=== PATIENT | female | born 1940 | race Caucasian/White ===

== ENCOUNTER 2016-04-26 07:56 | Day surgery (SDC) | payer MEDICARE, BC ==
[~2016-04-26 07:56] MED LIST: RINGERS SOLUTION,LACTATED 1,000 ML IV PRN
--- OUTSIDE RECORDS SUMMARY | 2016-04-26 07:59 | XMS REPORT | Continuity of Care Document ---
:1940 Author Organization [facility] ([facility]) Address [address] [place] [address] Phone [phone] Care Team Providers Name Role Phone Unavailable Primary Care Provider Unavailable Source Comments This disclosure is being made pursuant to the Care Everywhere program, applicable federal and state laws, and may not contain all informaitonavailable regarding this patient.[facility] ([facility]) Active Allergies and Adverse Reactions No Active Allergies Current Medications Not on file Active Problems Not on file Social History Tobacco Use Types Packs/Day Years Used Date Never Assessed Last Filed Vital Signs Vital Sign Reading Time Taken Blood Pressure - - Pulse - - Temperature - - Respiratory Rate - - Height 1.626 m (5' 4.01") 02/14/2002 1:10 PM [employer] Weight 74.599 kg (164 lb 7.4 oz) 05/30/2002 1:13 PM [employer] Body Mass Index 28.22 05/30/2002 1:13 PM [employer] Oxygen Saturation - - Plan of Care Health Maintenance Due Date Last Done Comments Hepatitis B Vaccine (1 of 3 - Primary Series) 1940 Tdap Vaccine 08/09/1951 Lipid Disorder Screening 1958 Td Vaccine 1958 Mammogram 1980 Colonoscopy 1990 Zoster Vaccine 2000 Osteoporosis Screening (DXA Bone Density) 2005 Pneumococcal Vaccine (1 of 2 - PCV13) 2005 Influenza Vaccine: Seasonal (#1) 10/06/2015 Results from Last 3 Months Not on file
[2016-04-26] MEDS ORDERED: RINGERS SOLUTION,LACTATED 1,000 ML IV ONE (08:25)
[2016-04-26] MEDS ORDERED: PANTOPRAZOLE SODIUM 40 MG/100 ML PIGGYBACK IV ONE (10:33)
[2016-04-26] MEDS ORDERED: PANTOPRAZOLE SODIUM 40 MG in NORMAL SALINE 100 ML IV ONE (10:45)
[2016-04-26 14:36] VITALS: BP 130/84
--- NOTE | 2016-04-26 16:33 | OR ---
Operative Report - Dictated Report Narrative: Operative Report Date of operation: 04/26/2016 Preoperative diagnosis: Iron deficiency anemia. No recent dedicated colon studies Postoperative diagnosis: Hiatal hernia. Gastropathy. Foreign body of the stomach. Pyloric channel ulcer with pyloric stenosis (pathology and CLOtest pending) Normal colonoscopy Operation: EGD with biopsies. Retrieval of gastric foreign body. Balloon dilation of the pylorus to 15 mm Surgeon: Dr Ricketts Anesthesia: ISABEL EKATING CRNA Indications for procedure: The patient is a 75-year-old female referred by Dr. Smith for endoscopy as part of an evaluation of iron deficiency anemia. Her last colonoscopy was in 2005 Findings: Hiatal hernia, gastropathy. Foreign body in the stomach (ointment tube screw cap). Pyloric channel ulcer with stenosis (successfully dilated to 15 mm). Normal duodenum Narrative of procedure: The patient was identified preoperatively, and prior to the administration of anesthetic a multidisciplinary timeout was observed EGD: With the patient in the recumbent position, a bite-block was placed, intravenous sedation was administered, and the patient's eyes covered with a towel. The flexible fiberoptic gastroscope was advanced into the posterior pharynx which appeared normal. The supraglottic larynx appeared normal. The cords appeared normal, moved well, and opposed in the midline. The scope was advanced under direct vision into the proximal esophagus which appeared normal. The esophagus appeared freely distensible with normal mucosa. The esophageal mucosa appeared normal down to the gastroesophageal junction which was sharp and noninflamed. The GE junction appeared normally distensible. There was a small hiatal hernia. The scope was advanced into the stomach proper which was insufflated with air. There was mild ramirez gastric erythema. There was a foreign body noted in the mid stomach. The scope was advanced to the pylorus where a pyloric channel ulceration was noted. The pylorus was stenotic and would not admit the gastroscope. Accordingly the pylorus was then dilated in stages to 15 mm. It appeared hemostatic. The scope could then be advanced into the duodenal bulb which appeared normal. The scope was advanced further to the horizontal portion of the duodenum which appeared normal, specifically the villous architecture appeared well preserved and clear bile was present. The scope was slowly withdrawn through the duodenal bulb with confirmation that no active bulb ulcer was present. The scope was withdrawn into the stomach and field representative/health education biopsies of prepyloric antral mucosa obtained for CLOtest and pathology. The biopsy sites were seen to be hemostatic. The foreign body was placed in a bag for retrieval. The insufflated air was removed, the scope withdrawn from the patient with the foreign body contained in the bag, and this portion of the procedure terminated. COLONOSCOPY: The patient was then placed in the left lateral position, and the perineum was inspected. There was no evidence of pilonidal disease or skin breakdown. The external appearance of the anus was normal. Sphincter tone was good. The flexible fiberoptic colonoscope was inserted into the rectum which was insufflated with air. The rectal mucosa and submucosal vascular pattern appeared normal, the prep was seen to be complete. The scope was advanced through the sigmoid colon, up the descending colon, and around the splenic flexure where the triangular haustral architecture of the transverse colon was seen. The scope was advanced across the transverse colon, around the hepatic flexure to the cecum, where the confluence of tenia and the ileocecal valve were identified. The mucosa at this level appeared normal. The scope was then slowly withdrawn in a circular fashion so that all aspects of colonic mucosa were inspected. The colon was very capacious character requiring use of standard reduction maneuvers and gentle external manual compression on the abdomen to reach the cecum. The haustral architecture however appeared well preserved throughout with no evidence of external compression. The mucosa and submucosal vascular pattern appeared normal, specifically there was no gross evidence to suggest colitis or inflammatory bowel disease and no AV malformations were seen. No keyla diverticulosis was demonstrated. No polyps were encountered. The scope was gradually withdrawn to the level of the rectum. As much insufflated air as possible was removed. The scope was withdrawn from the patient and the procedure terminated. The patient tolerated the anesthetic and procedure well without complication and was transferred back to the ambulatory surgery area awake and in stable condition. The patient remained stable throughout a period of postoperative observation. She denied abdominal discomfort, was able to tolerate by mouth intake, and was up without assistance. I shared the operative findings with the patient and her , and she was given copies of the photographs which appear in the medical record. She was shown the foreign body and it was given to her. She did not remember having swallowed it. She was given a single dose of Protonix 40 mg IV prior to discharge. She was discharged home with instructions not to engage in hazardous activity today, but may resume normal activity tomorrow, and advance diet as tolerated. She is to continue those medications as listed in the history and physical exam. I made arrangements to contact her with the biopsy reports and will make additional recommendations for treatment and follow -up based upon those results. RECOMMENDATION: With regard to colon surveillance, she should have a Colonoscopy in 10 years depending upon findings and symptoms. Reviewed and electronically signed
== END 2016-04-26 07:57 | disposition home or self-care (01) ==
LOC: AMB 07:56
PROVIDERS: ATTEND Surgery
PROC: 0D778ZZ Dilation of Stomach, Pylorus, Via Natural or Artificial Opening Endoscopic (ICD-10-PCS; 2016-04-26)
PROC: 0DC68ZZ Extirpation of Matter from Stomach, Via Natural or Artificial Opening Endoscopic (ICD-10-PCS; 2016-04-26)
PROC: 0DJD8ZZ Inspection of Lower Intestinal Tract, Via Natural or Artificial Opening Endoscopic (ICD-10-PCS; principal; 2016-04-26 09:00)
PROC: 0DB78ZX Excision of Stomach, Pylorus, Via Natural or Artificial Opening Endoscopic, Diagnostic (ICD-10-PCS; 2016-04-26 09:00)
DX: Z12.11 Encounter for screening for malignant neoplasm of colon (principal); K29.70 Gastritis, unspecified, without bleeding; K44.9 Diaphragmatic hernia without obstruction or gangrene; T18.2XXA Foreign body in stomach, initial encounter; K25.9 Gastric ulcer, unspecified as acute or chronic, without hemorrhage or perforation; K31.1 Adult hypertrophic pyloric stenosis; D50.9 Iron deficiency anemia, unspecified; I10 Essential (primary) hypertension; E78.5 Hyperlipidemia, unspecified; E03.9 Hypothyroidism, unspecified; F32.9 Major depressive disorder, single episode, unspecified; F41.1 Generalized anxiety disorder; Z87.891 Personal history of nicotine dependence; Z68.28 Body mass index [BMI] 28.0-28.9, adult
CPT/HCPCS: 43239; 43245; 43247; 87081; G0121

== ENCOUNTER 2019-02-07 16:45 | Inpatient (IN) ==
[2019-02-07] MEDS ORDERED: NALOXONE HCL 1 MG/1 ML SYRG IV ONE (17:12)
[2019-02-07] MEDS ORDERED: NORMAL SALINE 1,000 ML IV ONE ×2 (17:12→18:15)
[2019-02-07 17:50] LABS: Hematocrit 39.4 % (37.0-47.0); Hemoglobin 13.1 gm/dL (12.5-16.0); Mean Cell Volume 85.7 fl (78-100); Mean Corpuscular Hemoglobin 28.5 pg (27-31); Mean Corpuscular Hgb Conc 33.2 g/dl (32-36); Neutrophil # 5.4 K/mm3 (1.3-6.0); Neutrophil % 75.6 % (42-75.0); Platelet Count 263 K/mm3 (150-450); Red Cell Distribution Width 13.1 % (11.5-14.0); White Blood Count 7.1 K/mm3 (4.0-10.5)
[2019-02-07 18:07] LABS: Urine Bilirubin Negative (NEGATIVE); Urine Blood Negative /ul (NEGATIVE); Urine Ketone Negative (NEGATIVE); Urine Nitrite Negative (NEGATIVE); Urine Protein Negative (NEGATIVE); Urine Specific Gravity 1.025 SP.GR. (1.005-1.010); Urine Urobilinogen Normal (NORMAL); Urine pH 5.5 pH (5.0-7.0)
[2019-02-07 18:14] LABS: ALT 13 U/L (19-67); AST 15 U/L (0-48); Acetaminophen * 6.1 mcg/mL (10.0-30.0); Albumin * 3.2 gm/dl (3.4-5.0); Alkaline Phosphatase * 83 U/L (50-170); BUN/Creatinine Ratio 17.5 (9.0-21.6); Bilirubin, Total 0.2 mg/dL (0.0-1.1); Blood Urea Nitrogen 14 mg/dL (3-23); Ca. Corrected For Albumin 8.3 mg/dL (8.4-10.2); Carbon Dioxide 25.8 mmol/L (24-32.6); Chloride 106 mmol/L (97-106); Glucose * 105 mg/dL (70-110); Lipase 72 U/L (73-393); Potassium 3.8 mmol/L (3.4-4.6); Salicylate 8.9 mg/dL (2.8-20.0); Sodium 140 mmol/L (132-142); TSH * 0.007 uIU/mL (0.358-3.74); Total Protein 5.9 gm/dL (6.2-8.2); Troponin I Less than 0.017 ng/mL (0.00-0.10)
[2019-02-07 18:18] LABS: Cocaine Ur Negative (NEGATIVE); Urine Barbiturate Negative (NEGATIVE); Urine Benzodiazepines Negative (NEGATIVE); Urine PCP Negative (NEGATIVE); Urine THC Negative (NEGATIVE)
[2019-02-07 18:20] LABS: Urine Opiates Positive (NEGATIVE)
[2019-02-07 18:28] LABS: Urine Amorphous Sediment Many - 3+ (NONE-FEW); Urine Appearance Clear (CLEAR); Urine Bacteria None Seen; Urine Color Yellow; Urine RBC None Seen /hpf (0-5); Urine WBC TRACE /hpf (0-5)
[2019-02-07] MEDS ORDERED: HALOPERIDOL LACTATE 5 MG/ML VIAL IM ONE ×2 (18:35→19:19)
--- NOTE | 2019-02-07 20:11 | ERNOTE ---
Medical Problem HPI - Narrative Date of Service: 02/07/19 - General Chief Complaint: Drug Overdose Time Seen by Provider: 02/07/19 17:02 Source: patient Exam Limitations: no limitations - Immun/Allergies/Home Medications Immunizations: IMMUNIZATION HX Immunizations Up to Date Yes History of Influenza Vaccine Yes Hx Pneumococcal Vaccination Yes Allergies/Adverse Reactions: Allergies doxycycline Adverse Reaction (Intermediate, Verified 01/18/19 13:01) Diarrhea tizanidine Adverse Reaction (Intermediate, Verified 01/18/19 13:01) Mental status changes Home Medications: HOME MEDICATIONS Calcium Carbonate/Vitamin D3 [Calcium 600 + D Tablet] 2 ea PO DAILY 03/14/15 [Last Taken 07/20/18] Gluc Diaz/Chondro Diaz A/Vit C/Mn [Glucosamine Chondroitin Tab] 2 ea PO DAILY 04/20/16 [Last Taken 07/20/18] Synthroid 175 mcg tablet 175 mcg PO DAILY #30 tab NS 02/09/18 [Last Taken 07/20/18] oxycodone 10 mg tablet 10 mg PO Q6H tab 03/13/18 [Last Taken 07/20/18] furosemide 20 mg tablet 30 mg PO DAILY tab 07/20/18 [Last Taken 07/20/18] Aspirin/Acetaminophen/Caffeine [Excedrin Migraine Caplet] 2 ea PO DAILY PRN 07/21/18 [Last Taken Unknown] folic acid 1 mg tablet 1 mg PO DAILY #30 tab 08/28/18 [Last Taken Unknown] simvastatin 40 mg tablet See Rx Instructions .ROUTE .COMPLEX #30 tablet 10/16/18 [Last Taken Unknown] trazodone 100 mg tablet 200 mg PO HS #60 tab 01/22/19 [Last Taken Unknown] Baclofen 10 mg PO DAILY 02/07/19 [Last Taken Unknown] - History of Present History Narrative: Patient arrives via EMS with concern of possibly taking too much narcotic. She has pinpoint pupils and will mumble responses, still has gag reflex. EMS did not provide Narcan. Daughter persent as well. It is unclear if she overdosed but apparently had not been acting right all day, this had been noted earlier today. Otherwise history unavailable from patient. Timing: constant Modifying Factors - (Improves): Present: other - unknown Modifying Factors - (Worsens): Present: other - unknown Review of Systems - Narrative Narrative: unable due to patient condition Medical History (Last Reviewed 02/07/19 @ 20:08 by Audi Ny MD) No history of alcohol use Non-tobacco user Wears glasses Anemia Onset Date: ~08/12/16 Chronic pain syndrome Onset Date: ~05/22/15 Degeneration of lumbar or lumbosacral intervertebral disc Onset Date: Unknown Depression Onset Date: ~05/19/12 Essential hypertension Onset Date: ~10/02/13 Generalized anxiety disorder Onset Date: ~09/02/12 Hot flashes Onset Date: ~2012 Hyperlipidemia Onset Date: ~05/22/15 Hypokalemia Onset Date: ~08/12/16 Hypothyroidism Onset Date: ~05/22/15 Insomnia Onset Date: ~08/12/16 Internal derangement of knee Onset Date: ~09/13/14 Right Low back pain Onset Date: ~09/20/13 Myalgia and myositis, unspecified Onset Date: ~09/14/12 Neuropathy Onset Date: Unknown Left arm Osteopenia Onset Date: Unknown Upper back pain Onset Date: ~05/19/12 Acute pyloric channel ulcer Onset Date: ~04/27/16 CTS (carpal tunnel syndrome) Onset Date: ~06/05/14 bilateral Cancer Onset Date: Unknown 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 Edema Onset Date: ~09/14/16 Gastritis Onset Date: ~08/12/16 History of EKG Onset Date: ~07/07/04 History of blood transfusion Onset Date: Unknown 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 Onset Date: Unknown Post-menopausal Onset Date: ~11/01/13 Pyloric stenosis, acquired Onset Date: ~04/27/16 Rectal bleeding Onset Date: ~11/09/05 Spondylosis Onset Date: Unknown Synovial cyst of popliteal space [Garcia], right knee Onset Date: ~06/05/14 Vocal cord paresis Onset Date: ~07/2004 Surgical History: Surgical History (Last Reviewed 02/07/19 @ 20:08 by Audi Ny MD) S/P carpal tunnel release Onset Date: 07/21/18 left-endoscopic H/O cervical spine x-ray Onset Date: ~02/11/03 H/O colonoscopy Onset Date: ~04/26/16 11/09/05: Liliam; negative 04/26/16: Normal H/O knee surgery Onset Date: ~05/24/17 R knee H/O mammogram Onset Date: ~03/02/06 03/02/2006: benign 01/20/2005: benign 01/08/2004: benign 10/05/2002 07/11/2001 H/O thyroidectomy Onset Date: ~07/2004 Goiter H/O x-ray of lumbar spine Onset Date: ~02/11/03 History of diagnostic ultrasound Onset Date: Unknown 06/26/2004: Thyroid/neck soft tissue 01/14/2004: echocardiogram - stress test post coronary artery bypass grafting surgery 10/08/2002: left breast History of esophagogastroduodenoscopy (EGD) Onset Date: ~04/26/16 With biopsy; Bagan - clotest negative, retrieval of gastric FB (screw cap), balloon dilation of the pylorus to 15mm S/P dilation and curettage Onset Date: Unknown X5 Family History: Family History (Last Reviewed 02/07/19 @ 20:08 by Audi Ny MD) Aunt Breast cancer Brother , age 67 Diabetes MVA (motor vehicle accident) Father , age 80 Multiple myeloma Grandfather , Maternal Cirrhosis of liver Grandfather , Paternal Cancer Grandmother , Maternal Kidney disease Thyroid disease Grandmother , Paternal Heart disease Mother , age 90 Osteoporosis Myocardial infarction Hypertension Daughter Alive and well Son Alive and well Social History: (Last Reviewed 02/07/19 @ 20:08 by Audi Ny MD) Social History: adopted: No retirement: No Marital status: lives independently: No Highest education level completed: some college, no degree Service: No Tobacco: Smoking Status: Never smoker Alcohol: alcohol intake: former Substance Use: substance use type: does not use Dietary Habits: caffeine: Yes Physical Exam - Physical Exam General Appearance: Present: other - somnolent, still has gag, pinpoint pupils. Head Exam: Present: normal inspection, no evidence of injury Eye Exam: PERRL: bilateral - pinpoint pupils Ears, Nose, Throat: Present: other - normal gag reflex. Absent: pharyngeal erythema Neck: Present: normal inspection, other - no meningeal signs Respiratory: Present: no respiratory distress, normal breath sounds, no accessory muscle use, lungs clear Cardiovascular/Chest: Present: regular rate, rhythm, normal peripheral pulses Gastrointestinal/Abdominal: Present: normal bowel sounds, nontender, soft, other - no rigidity Back Exam: Absent: CVA tenderness (R), CVA tenderness (L) Extremity Exam: Present: other - no deformity. Absent: extremity edema Neurological Exam: Present: other - somnolent. After narcan wakes and is very agitated, difficult exam but no acute unilateral focal motor or sensory deficits Skin Exam: Present: normal color, warm/dry. Absent: skin rash Progress - Results and Orders Patient's Lab Results:: I have reviewed the patient's lab results. - Vital Signs Patient's Vital Signs:: I have reviewed the patient's vital signs. Vital Signs: Vital Signs 02/07/19 16:46 02/07/19 17:11 Temperature 36.1 C Pulse Rate 73 70 Respiratory Rate 18 15 Blood Pressure 138/58 138/57 O2 Sat by Pulse Oximetry 95 95 - EKG EKG #1 EKG: NSR EKG read: Interp. by me EKG Comments: NSR rate 66. No evidence of acute infarct or ischemic pattern - X-Ray X-Ray #1 X-Ray: chest Interpretation: Interp. by me X-ray Comments: No real time radiology reads. I reviewed portable CXR, no clear acute process noted, no pneumonia or PTX noted. Await officail radiology report - Progress/Reassessment Chief Complaint: Drug Overdose Progress Note-Subjective: 02/07/19 20:00 Patient had pinpoint pupils and was minimally responsive. Narcan given and patient immediately awoke and became combative. Her pupils no longer pinpoint. She was then thrashing around. There is concern of narcotic overdose. Also possible baclofen. Poison control notified. I was unable to get a head CT because of her agitation after narcan. Dr Lombardi saw the patient in the ED and will take to patient to the SCU and get head CT when patient calms down after the Haldol. I think that is reasonable. There is nothing to suggest ICH on exam or by history, there is nothing to suggest meningitis or encephalitis. CLinically she immediately awoke with narcan and had findings c/w excess opiods on arrival. Dr Lombardi will manage her further from this point and saw the patient in the ED. Departure Clinical Impression: Change in mental status - Departure Disposition: Still a patient Condition: Fair Referrals: Harjit rBavo MD [Primary Care Provider] -
[2019-02-07] MEDS ORDERED: ENOXAPARIN SODIUM 40 MG/0.4 ML SYRG SC SCH (23:30)
[2019-02-07] MEDS ORDERED: HALOPERIDOL LACTATE 5 MG/ML VIAL IM PRN (23:33)
--- NOTE | 2019-02-07 23:39 | HP ---
Chief Complaint - Chief Complaint Date of Service: 02/07/19 Time of Service: 20:25 Chief Complaint: Acute obtunded mentation, weakness, inability to care for self, poor appetite History of Present Illness: Dee Valente is a 78-year-old female. She still lives at home. Today is the one year anniversary of her 's . Because she could not be aroused EMS was summoned to bring her to the emergency room. On arrival pupils were pinpoint and respirations were sluggish. She takes opiates regularly for chronic pain and was also taking baclofen. Apparently 12 baclofen were missing but is unknown how many of the narcotic was missing. She was given 0.2 of Narcan in the emergency room and she immediately awakened and became very combative and confused. The pupils dilated and she was fully alert but very confused. Because of her combativeness she was given Haldol 2-1/2 mg twice in the emergency room. Now in SCU she rests for a while and then becomes agitated again. She will need intermittent Haldol through the night I suspect. Medical History (Last Reviewed 02/07/19 @ 21:45 by Hilda Pedraza RN) No history of alcohol use Non-tobacco user Wears glasses Anemia Onset Date: ~08/12/16 Chronic pain syndrome Onset Date: ~05/22/15 Degeneration of lumbar or lumbosacral intervertebral disc Onset Date: Unknown Depression Onset Date: ~05/19/12 Essential hypertension Onset Date: ~10/02/13 Generalized anxiety disorder Onset Date: ~09/02/12 Hot flashes Onset Date: ~2012 Hyperlipidemia Onset Date: ~05/22/15 Hypokalemia Onset Date: ~08/12/16 Hypothyroidism Onset Date: ~05/22/15 Insomnia Onset Date: ~08/12/16 Internal derangement of knee Onset Date: ~09/13/14 Right Low back pain Onset Date: ~09/20/13 Myalgia and myositis, unspecified Onset Date: ~09/14/12 Neuropathy Onset Date: Unknown Left arm Osteopenia Onset Date: Unknown Upper back pain Onset Date: ~05/19/12 Acute pyloric channel ulcer Onset Date: ~04/27/16 CTS (carpal tunnel syndrome) Onset Date: ~06/05/14 bilateral Cancer Onset Date: Unknown 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 Edema Onset Date: ~09/14/16 Gastritis Onset Date: ~08/12/16 History of EKG Onset Date: ~07/07/04 History of blood transfusion Onset Date: Unknown 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 Onset Date: Unknown Post-menopausal Onset Date: ~11/01/13 Pyloric stenosis, acquired Onset Date: ~04/27/16 Rectal bleeding Onset Date: ~11/09/05 Spondylosis Onset Date: Unknown Synovial cyst of popliteal space [Garcia], right knee Onset Date: ~06/05/14 Vocal cord paresis Onset Date: ~07/2004 Surgical History: Surgical History (Last Reviewed 02/07/19 @ 21:45 by Hilda Pedraza RN) S/P carpal tunnel release Onset Date: 07/21/18 left-endoscopic H/O cervical spine x-ray Onset Date: ~02/11/03 H/O colonoscopy Onset Date: ~04/26/16 11/09/05: Liliam; negative 04/26/16: Normal H/O knee surgery Onset Date: ~05/24/17 R knee H/O mammogram Onset Date: ~03/02/06 03/02/2006: benign 01/20/2005: benign 01/08/2004: benign 10/05/2002 07/11/2001 H/O thyroidectomy Onset Date: ~07/2004 Goiter H/O x-ray of lumbar spine Onset Date: ~02/11/03 History of diagnostic ultrasound Onset Date: Unknown 06/26/2004: Thyroid/neck soft tissue 01/14/2004: echocardiogram - stress test post coronary artery bypass grafting surgery 10/08/2002: left breast History of esophagogastroduodenoscopy (EGD) Onset Date: ~04/26/16 With biopsy; Bagan - clotest negative, retrieval of gastric FB (screw cap), balloon dilation of the pylorus to 15mm S/P dilation and curettage Onset Date: Unknown X5 Family History: Family History (Last Reviewed 02/07/19 @ 21:45 by Hilda Pedraza, TONEY) Aunt Breast cancer Brother , age 67 Diabetes MVA (motor vehicle accident) Father , age 80 Multiple myeloma Grandfather , Maternal Cirrhosis of liver Grandfather , Paternal Cancer Grandmother , Maternal Kidney disease Thyroid disease Grandmother , Paternal Heart disease Mother , age 90 Osteoporosis Myocardial infarction Hypertension Daughter Alive and well Son Alive and well Social History: (Last Reviewed 02/07/19 @ 21:45 by Hilda Pedraza RN) Social History: adopted: No chcf: No Marital status: lives independently: No Highest education level completed: some college, no degree Service: No Tobacco: Smoking Status: Never smoker Alcohol: alcohol intake: former Substance Use: substance use type: does not use Dietary Habits: caffeine: Yes Review Of Systems (GEN) - Review of Systems Generalized/Overall Review: Present: No Symptoms Reported EENTM: Present: No Symptoms Reported Respiratory: Present: No Symptoms Reported Cardiac: Present: No Symptoms Reported Abdominal: Present: No Symptoms Reported Genitourinary: Present: No Symptoms Reported Musculoskeletal: Present: No Symptoms Reported Neurological: Present: Emotional Problems, Other - Confused and combative. Acute alteration in mental status. Probable opiate and muscle relaxant overdosing accidental versus intentional. Her daughter insists she would not do it intentionally. Skin: Present: No Symptoms Reported Endocrine: Present: No Symptoms Reported Immunizations: IMMUNIZATION HX Immunizations Up to Date Yes History of Influenza Vaccine Yes Hx Pneumococcal Vaccination Yes Allergies/Adverse Reactions: Allergies Allergy/AdvReac Type Severity Reaction Status Date / Time doxycycline AdvReac Intermediate Diarrhea Verified 01/18/19 13:01 tizanidine AdvReac Intermediate Mental Verified 01/18/19 13:01 status changes Home Medications: HOME MEDICATIONS Calcium Carbonate/Vitamin D3 [Calcium 600 + D Tablet] 2 ea PO DAILY 03/14/15 [Last Taken 07/20/18] Gluc Diaz/Chondro Diaz A/Vit C/Mn [Glucosamine Chondroitin Tab] 2 ea PO DAILY 04/20/16 [Last Taken 07/20/18] Synthroid 175 mcg tablet 175 mcg PO DAILY #30 tab NS 02/09/18 [Last Taken 07/20/18] oxycodone 10 mg tablet 10 mg PO Q6H tab 03/13/18 [Last Taken 07/20/18] furosemide 20 mg tablet 30 mg PO DAILY tab 07/20/18 [Last Taken 07/20/18] Aspirin/Acetaminophen/Caffeine [Excedrin Migraine Caplet] 2 ea PO DAILY PRN 07/21/18 [Last Taken Unknown] folic acid 1 mg tablet 1 mg PO DAILY #30 tab 08/28/18 [Last Taken Unknown] simvastatin 40 mg tablet See Rx Instructions .ROUTE .COMPLEX #30 tablet 10/16/18 [Last Taken Unknown] trazodone 100 mg tablet 200 mg PO HS #60 tab 01/22/19 [Last Taken Unknown] Baclofen 10 mg PO DAILY 02/07/19 [Last Taken Unknown] Exam - Exam Vital Signs: Vital Signs - Last Taken Temp 36.6 C 02/07/19 20:50 Pulse 72 02/07/19 20:50 Resp 18 02/07/19 20:50 BP 152/75 H 02/07/19 20:50 Pulse Ox 100 02/07/19 20:50 Constitutional: Present: Alert, Oriented x3, Cooperative, Well developed, Well nourished, No distress, Moderate distress, Elderly ENT Exam: Present: normal ENT inspection Eye Exam: bilateral eye: normal inspection, PERRL - Now that narcotic was reversed, EOMI Neck: Present: non-tender, limited range of motion Back Exam: Present: normal inspection, no CVA tenderness, no vertebral tenderness Breasts: Present: Exam deferred Respiratory: Present: chest non-tender, lungs clear, normal breath sounds, no respiratory distress, no accessory muscle use Cardiovascular/Chest: Present: normal peripheral pulses, regular rate, rhythm, no chest tenderness, no edema, no gallop, no JVD, no murmur, no rub Peripheral Pulses: carotid (R): 2+, carotid (L): 2+, radial (R): 2+, radial (L): 2+ Abdomen: Present: Normal bowel sounds, soft, nontender, nondistended, no rebound tenderness, no hepatospenomegaly, no masses /Rectal: Present: Exam deferred Extremity: Present: normal range of motion, non-tender, normal inspection, no pedal edema, no calf tenderness, normal capillary refill Skin Exam: Present: normal color, warm/dry, no cyanosis Lymphatic: Present: no adenopathy Neurologic: Present: giver II-XII nml as tested, no motor/sensory deficits, other - Combative and noncommunicative. Absent: alert, normal mood/affect, oriented x 3 Appearance: Present: appropriate appearance, impaired insight Eye contact: Present: other - Confused and agitated, unable to cooperate. Thoughts: Present: normal thought pattern, no apparent hallucination Diagnostic Studies: Abnormal Lab Results 02/07/19 02/07/19 02/07/19 Range/Units 06:00 17:29 17:40 Neutrophils % 75.6 H (42-75.0) % Lymphocytes % 18.3 L (20-51) % Lymphocytes # 1.30 L (1.5-3.5) k/mm3 Calcium Adj for Albumin (8.4-10.2) mg/dL ALT (19-67) U/L Total Protein (6.2-8.2) gm/dL Albumin (3.4-5.0) gm/dl Lipase (73-393) U/L TSH (0.358-3.74) uIU/mL Free T4 (0.76-1.46) ng/dL Urine WBC Trace H (0-5) /hpf Amorphous Sediment Many - 3+ H (NONE-FEW) Urine Opiates Screen Positive H (NEGATIVE) Acetaminophen (10.0-30.0) mcg/mL 02/07/19 02/07/19 02/07/19 Range/Units 17:40 17:40 22:21 Neutrophils % (42-75.0) % Lymphocytes % (20-51) % Lymphocytes # (1.5-3.5) k/mm3 Calcium Adj for Albumin 8.3 L (8.4-10.2) mg/dL ALT 13 L (19-67) U/L Total Protein 5.9 L (6.2-8.2) gm/dL Albumin 3.2 L (3.4-5.0) gm/dl Lipase 72 L (73-393) U/L TSH 0.007 L (0.358-3.74) uIU/mL Free T4 2.03 H (0.76-1.46) ng/dL Urine WBC (0-5) /hpf Amorphous Sediment (NONE-FEW) Urine Opiates Screen (NEGATIVE) Acetaminophen 6.1 L Less than 0.2 L (10.0-30.0) mcg/mL Laboratory Results WBC 7.1 K/mm3 (4.0-10.5) 02/07/19 17:40 RBC 4.60 M/mm3 (4.2-5.4) 02/07/19 17:40 Hgb 13.1 gm/dL (12.5-16.0) 02/07/19 17:40 Hct 39.4 % (37.0-47.0) 02/07/19 17:40 MCV 85.7 fl (78-100) 02/07/19 17:40 MCH 28.5 pg (27-31) 02/07/19 17:40 MCHC 33.2 g/dl (32-36) 02/07/19 17:40 RDW 13.1 % (11.5-14.0) 02/07/19 17:40 Plt Count 263 K/mm3 (150-450) 02/07/19 17:40 MPV 10.0 fl (8-12.5) 02/07/19 17:40 Immature Gran % (Auto) 0.40 % (0.001-0.429) 02/07/19 17:40 Immature Gran # (Auto) 0.03 K/mm3 (0.000-0.0310) 02/07/19 17:40 Neutrophils % 75.6 % (42-75.0) H 02/07/19 17:40 Lymphocytes % 18.3 % (20-51) L 02/07/19 17:40 Monocytes % 3.9 % (0.0-9) 02/07/19 17:40 Eosinophils % 1.0 % (0.0-3.0) 02/07/19 17:40 Basophils % 0.8 % (0.0-1.0) 02/07/19 17:40 Nucleated RBC % 0.0 k/mm3 (0-1) 02/07/19 17:40 Neutrophils # 5.4 K/mm3 (1.3-6.0) 02/07/19 17:40 Lymphocytes # 1.30 k/mm3 (1.5-3.5) L 02/07/19 17:40 Monocytes # 0.3 k/mm3 (0.0-1.0) 02/07/19 17:40 Eosinophils # 0.1 k/mm3 (0.0-0.7) 02/07/19 17:40 Absolute Basophils 0.1 k/mm3 (0.0-0.1) 02/07/19 17:40 Sodium 140 mmol/L (132-142) 02/07/19 17:40 Plasma Sodium 140 mmol/L (130-142) 02/07/19 17:40 Potassium 3.8 mmol/L (3.4-4.6) 02/07/19 17:40 Chloride 106 mmol/L (97-106) 02/07/19 17:40 Carbon Dioxide 25.8 mmol/L (24-32.6) 02/07/19 17:40 Anion Gap 12.0 mmol/L (6.8-13.8) 02/07/19 17:40 BUN 14 mg/dL (3-23) 02/07/19 17:40 Creatinine 0.80 mg/dL (0.4-1.4) 02/07/19 17:40 Est GFR (Non-Af Amer) 74 mL/min (60-130) 02/07/19 17:40 BUN/Creatinine Ratio 17.5 (9.0-21.6) 02/07/19 17:40 Random Glucose 105 mg/dL (70-110) 02/07/19 17:40 Lactic Acid, Venous 0.9 mmol/L (0.4-2.0) 02/07/19 17:45 Calcium 8.0 mg/dL (7.9-10.9) 02/07/19 17:40 Calcium Adj for Albumin 8.3 mg/dL (8.4-10.2) L 02/07/19 17:40 Total Bilirubin 0.2 mg/dL (0.0-1.1) 02/07/19 17:40 AST 15 U/L (0-48) 02/07/19 17:40 ALT 13 U/L (19-67) L 02/07/19 17:40 Alkaline Phosphatase 83 U/L (50-170) 02/07/19 17:40 Troponin I Less than 0.017 ng/mL (0.00-0.10) 02/07/19 17:40 Total Protein 5.9 gm/dL (6.2-8.2) L 02/07/19 17:40 Albumin 3.2 gm/dl (3.4-5.0) L 02/07/19 17:40 Lipase 72 U/L (73-393) L 02/07/19 17:40 TSH 0.007 uIU/mL (0.358-3.74) L 02/07/19 17:40 Free T4 2.03 ng/dL (0.76-1.46) H 02/07/19 17:40 Urine Color Yellow 02/07/19 06:00 Urine Appearance Clear (CLEAR) 02/07/19 06:00 Urine pH 5.5 pH (5.0-7.0) 02/07/19 06:00 Ur Specific Loiza 1.025 SP.GR. (1.005-1.010) 02/07/19 06:00 Urine Protein Negative mg/dL (NEGATIVE) 02/07/19 06:00 Urine Glucose (UA) Negative mg/dL (NEGATIVE) 02/07/19 06:00 Urine Ketones Negative mg/dL (NEGATIVE) 02/07/19 06:00 Urine Blood Negative /ul (NEGATIVE) 02/07/19 06:00 Urine Nitrate Negative (NEGATIVE) 02/07/19 06:00 Urine Bilirubin Negative mg/dl (NEGATIVE) 02/07/19 06:00 Urine Urobilinogen Normal EU/dl (NORMAL) 02/07/19 06:00 Ur Leukocyte Esterase Negative /ul (NEGATIVE) 02/07/19 06:00 Urine RBC None seen /hpf (0-5) 02/07/19 06:00 Urine WBC Trace /hpf (0-5) H 02/07/19 06:00 Ur Epithelial Cells 0-5 /hpf (0-5) 02/07/19 06:00 Amorphous Sediment Many - 3+ (NONE-FEW) H 02/07/19 06:00 Urine Bacteria None seen (NONE) 02/07/19 06:00 Urine Culture Comments No culture indicated 02/07/19 06:00 Salicylates 7.4 mg/dL (2.8-20.0) 02/07/19 20:20 Urine Opiates Screen Positive (NEGATIVE) H 02/07/19 17:29 Acetaminophen Less than 0.2 mcg/mL (10.0-30.0) L 02/07/19 22:21 Barbiturate Screen Negative (NEGATIVE) 02/07/19 17:29 Ur Phencyclidine Scrn Negative (NEGATIVE) 02/07/19 17:29 Urine Amphetamine Negative (NEGATIVE) 02/07/19 17:29 U Benzodiazepines Scrn Negative (NEGATIVE) 02/07/19 17:29 Urine Cocaine Screen Negative (NEGATIVE) 02/07/19 17:29 Urine Marijuana (THC) Negative (NEGATIVE) 02/07/19 17:29 Ethyl Alcohol Less than 3.0 mg/dL (0.0-10.0) 02/07/19 17:40 Assessment/Plan - Narrative Narrative: 1. Continue Haldol intermittently through the night 2. Watch for signs of opiate withdrawal i.e. sweating, diarrhea etc. 3. Repeat morning lab 4. Dr. Smith to assume care tomorrow morning. - Assessment/Plan (1) Opioid overdose Problem: Acute Qualifiers: Encounter type: initial encounter (2) Acute psychosis Problem: Acute (3) Change in mental status Problem: Acute Qualifiers: Altered mental status type: delirium Qualified Code(s): R41.0 - Disorientation, unspecified (4) Grief reaction Problem: Chronic (5) Chronic, continuous use of opioids Problem: Chronic
[2019-02-08] MEDS: ENOXAPARIN SODIUM 40 MG/0.4 ML SYRG SC SCH ×2 (00:21→21:43)
[2019-02-08 06:48] LABS: Hematocrit 44.1 % (37.0-47.0); Hemoglobin 14.9 gm/dL (12.5-16.0); Mean Corpuscular Hemoglobin 28.7 pg (27-31); Mean Corpuscular Hgb Conc 33.8 g/dl (32-36); Mean Platelet Volume 9.9 fl (8-12.5); Neutrophil # 9.8 K/mm3 (1.3-6.0); Neutrophil % 86.8 % (42-75.0); Platelet Count 325 K/mm3 (150-450); Red Blood Count 5.19 M/mm3 (4.2-5.4); Red Cell Distribution Width 13.2 % (11.5-14.0); White Blood Count 11.2 K/mm3 (4.0-10.5)
[2019-02-08 07:00] LABS: Anion Gap 15.8 mmol/L (6.8-13.8); BUN/Creatinine Ratio 15.7 (9.0-21.6); Bilirubin, Total 0.3 mg/dL (0.0-1.1); Ca. Corrected For Albumin 8.5 mg/dL (8.4-10.2); Calcium * 8.8 mg/dL (7.9-10.9); Carbon Dioxide 27.3 mmol/L (24-32.6); Potassium 3.1 mmol/L (3.4-4.6); Total Protein 7.1 gm/dL (6.2-8.2)
[2019-02-08] MEDS: LEVOTHYROXINE SODIUM 175 MCG TABLET PO SCH (08:42)
[2019-02-08] MEDS: POTASSIUM CHLORIDE 20 MEQ in DEXTROSE 5%-NORMAL SALINE 990 ML IV SCH (11:51)
--- NOTE | 2019-02-08 17:29 | PN ---
Subjective - Date and Time Seen Date: 02/08/19 Time: 17:16 Subjective Narrative: History taken from the records of this hospital admission and from her daughter who was present at the time of this examination. Her pain treatment is managed by a pain clinic. Previous methods of controlling pain were ineffective. Opiates have been effective. She has been on opiates for many years. She is also been on baclofen for at least a year. Her daughter relates that she will overuse her opiate because she does not want to be in pain several times last year she was oversedated, but not as severely as this time, and so it was managed with simple observation at home. This time there were opiate pills and baclofen pills missing from their jars. Taking all of these factors into account, the history that makes sense is that she took too many baclofen and too many opiates. Her motivation for this is not clear, as she is not yet able to provide a coherent history. She is now beginning to become more herself, but is not entirely clear and often drifts off to sleep. Our plan will be to allow her to further wake up from this event Her brain CAT scan from today was essentially normal except for changes in the frontal part of the brain, which the radiologist is unclear about. She needs a MRI of the brain, but she is too restless at the present time to accomplish that. She has history of brain tumor that was operatively removed, and this may very well be the explanation for the changes seen on CAT scan. I discussed the tentative plan with her daughter. The patient has used CBD oil at least once in the past, and 6 sublingual drops entirely got rid of her pain. We proposed changing her pain treatment to local instead of the pain clinic. Completely stopping baclofen and any other sedating drugs. Decreasing her opiate, and resuming regular use of CBD oil. Making sure there is Narcan nasal spray in the home. We will need to discuss all of this with the patient when she is more cogent. There have been no changes in her medication over the last 1 year. The date she got admitted to the hospital this time is the anniversary date of her 's . Objective - Review of Systems Generalized/Overall Review: Reports: No Symptoms Reported - Unable to provide a review of systems due to her mentation impairment. - Vitals Vitals: Last Vital Signs Temp 36.6 C 02/08/19 06:00 Pulse 92 02/08/19 15:00 Resp 21 H 02/08/19 15:00 BP 148/72 02/08/19 14:00 Pulse Ox 90 L 02/08/19 15:00 - Abnormal Lab Findings Abnormal Lab Findings: Abnormal Lab Results 02/07/19 02/07/19 02/07/19 Range/Units 06:00 17:29 17:40 WBC (4.0-10.5) K/mm3 Immature Gran # (Auto) (0.000-0.0310) K/mm3 Neutrophils % 75.6 H (42-75.0) % Lymphocytes % 18.3 L (20-51) % Neutrophils # (1.3-6.0) K/mm3 Lymphocytes # 1.30 L (1.5-3.5) k/mm3 Sodium (132-142) mmol/L Plasma Sodium (130-142) mmol/L Potassium (3.4-4.6) mmol/L Chloride (97-106) mmol/L Anion Gap (6.8-13.8) mmol/L Random Glucose (70-110) mg/dL Calcium Adj for Albumin (8.4-10.2) mg/dL ALT (19-67) U/L Total Protein (6.2-8.2) gm/dL Albumin (3.4-5.0) gm/dl Lipase (73-393) U/L TSH (0.358-3.74) uIU/mL Free T4 (0.76-1.46) ng/dL Urine WBC Trace H (0-5) /hpf Amorphous Sediment Many - 3+ H (NONE-FEW) Urine Opiates Screen Positive H (NEGATIVE) Acetaminophen (10.0-30.0) mcg/mL 02/07/19 02/07/19 02/07/19 Range/Units 17:40 17:40 22:21 WBC (4.0-10.5) K/mm3 Immature Gran # (Auto) (0.000-0.0310) K/mm3 Neutrophils % (42-75.0) % Lymphocytes % (20-51) % Neutrophils # (1.3-6.0) K/mm3 Lymphocytes # (1.5-3.5) k/mm3 Sodium (132-142) mmol/L Plasma Sodium (130-142) mmol/L Potassium (3.4-4.6) mmol/L Chloride (97-106) mmol/L Anion Gap (6.8-13.8) mmol/L Random Glucose (70-110) mg/dL Calcium Adj for Albumin 8.3 L (8.4-10.2) mg/dL ALT 13 L (19-67) U/L Total Protein 5.9 L (6.2-8.2) gm/dL Albumin 3.2 L (3.4-5.0) gm/dl Lipase 72 L (73-393) U/L TSH 0.007 L (0.358-3.74) uIU/mL Free T4 2.03 H (0.76-1.46) ng/dL Urine WBC (0-5) /hpf Amorphous Sediment (NONE-FEW) Urine Opiates Screen (NEGATIVE) Acetaminophen 6.1 L Less than 0.2 L (10.0-30.0) mcg/mL 02/08/19 02/08/19 Range/Units 06:38 06:38 WBC 11.2 H D (4.0-10.5) K/mm3 Immature Gran # (Auto) 0.04 H (0.000-0.0310) K/mm3 Neutrophils % 86.8 H (42-75.0) % Lymphocytes % 8.4 L (20-51) % Neutrophils # 9.8 H (1.3-6.0) K/mm3 Lymphocytes # 0.94 L (1.5-3.5) k/mm3 Sodium 147 H (132-142) mmol/L Plasma Sodium 147 H (130-142) mmol/L Potassium 3.1 L (3.4-4.6) mmol/L Chloride 107 H (97-106) mmol/L Anion Gap 15.8 H (6.8-13.8) mmol/L Random Glucose 126 H (70-110) mg/dL Calcium Adj for Albumin (8.4-10.2) mg/dL ALT 15 L (19-67) U/L Total Protein (6.2-8.2) gm/dL Albumin (3.4-5.0) gm/dl Lipase (73-393) U/L TSH (0.358-3.74) uIU/mL Free T4 (0.76-1.46) ng/dL Urine WBC (0-5) /hpf Amorphous Sediment (NONE-FEW) Urine Opiates Screen (NEGATIVE) Acetaminophen (10.0-30.0) mcg/mL - Exam Constitutional: Present: No distress, Somnolent, Elderly ENT Exam: Present: normal ENT inspection, hearing grossly normal Neck: Present: normal inspection, trachea midline. Absent: lymphadenopathy (R), lymphadenopathy (L), thyromegaly Respiratory: Present: lungs clear, normal breath sounds Cardiovascular/Chest: Present: normal peripheral pulses, regular rate, rhythm, no edema, no gallop, no JVD, no murmur Abdomen: Present: Normal bowel sounds, soft, nontender, nondistended, no hepatospenomegaly, no masses /Rectal: Present: Exam deferred Extremity: Present: normal inspection, no pedal edema Skin Exam: Present: normal color, warm/dry, no cyanosis Lymphatic: Present: no adenopathy Neurologic: Present: other - Somnolent. Much of what she says still does not make sense. Appearance: Present: appropriate appearance Eye contact: Present: other - Somnolent Thoughts: Present: no apparent hallucination, other - Somnolent and confused. Somewhat disoriented. [facility]i Physician Documentation - Urinary Catheter Management Urethral ([place]) Date of Insertion: 02/07/19 Time of Insertion: 19:00 Assessment/Plan - Problems/Diagnosis (1) Change in mental status Problem: Acute Qualifiers: Altered mental status type: delirium Qualified Code(s): R41.0 - Disorientation, unspecified Narrative: She is gradually becoming more awake and coherent. The plan is to allow her to continue to do that. Discharge will be when she has become coherent. Her CT of the brain is not completely normal. It rules out any kind of major bleed. The defects noted by the radiologist are probably related to her previous brain tumor surgery. When she is able to lie still we will do a brain MRI. (2) Opioid overdose Problem: Acute Qualifiers: Encounter type: subsequent encounter Narrative: Gradually improving. Responded to Narcan in the emergency room. We recommend local care for her pain rather than the pain clinic, the addition of Narcan nasal spray in the home, stopping baclofen and any other sedating medication, decreasing the dose of opiates slowly, and seeing if we can use CBD oil to replace the opiates on a gradual basis. (3) Hypokalemia Problem: Acute Narrative: She has received 2 L of plain normal saline. We will provide a new IV, with some potassium added and recheck chemistries tomorrow morning. At the same time we will also recheck a CBC. White blood count today was minimally elevated. (4) Hypoxemia Problem: Acute Narrative: Due to sedation. Will use nasal cannula oxygen until she is more awake. (5) Chronic, continuous use of opioids Problem: Chronic (6) Chronic lumbosacral pain Problem: Chronic (7) Chronic thoracic back pain Problem: Chronic Qualifiers: Back pain laterality: midline Qualified Code(s): M54.6 - Pain in thoracic spine; G89.29 - Other chronic pain (8) Grief reaction Problem: Acute Narrative: Actually subacute. Her 1 year ago (9) Insomnia Problem: Chronic Qualifiers: Insomnia type: primary Qualified Code(s): F51.01 - Primary insomnia
[2019-02-09] MEDS: POTASSIUM CHLORIDE 20 MEQ in DEXTROSE 5%-NORMAL SALINE 990 ML IV SCH ×2 (00:15→15:15)
[2019-02-09 06:39] LABS: Hematocrit 40.4 % (37.0-47.0); Hemoglobin 13.6 gm/dL (12.5-16.0); Mean Cell Volume 84.2 fl (78-100); Mean Corpuscular Hemoglobin 28.3 pg (27-31); Mean Corpuscular Hgb Conc 33.7 g/dl (32-36); Mean Platelet Volume 10.1 fl (8-12.5); Neutrophil # 11.3 K/mm3 (1.3-6.0); Neutrophil % 81.7 % (42-75.0); Platelet Count 325 K/mm3 (150-450); Red Cell Distribution Width 13.5 % (11.5-14.0); White Blood Count 13.9 K/mm3 (4.0-10.5)
[2019-02-09 06:50] LABS: Anion Gap 14.5 mmol/L (6.8-13.8); Calcium * 8.4 mg/dL (7.9-10.9); Carbon Dioxide 24.7 mmol/L (24-32.6); Estimated Creat Clear 63.9; Potassium 3.2 mmol/L (3.4-4.6)
--- NOTE | 2019-02-09 07:24 | PN ---
Subjective - Date and Time Seen Date: 02/09/19 Time: 07:11 Subjective Narrative: Her pain treatment is managed by a pain clinic. Previous methods of controlling pain were ineffective. Opiates have been effective. She has been on opiates for many years. She has also been on baclofen for many years. Her daughter related last evening that she will overuse her opiate because she does not want to be in pain. Several times last year she was oversedated, but not as severely as this time, and so it was managed with simple observation at home. This time there were opiate pills and baclofen pills missing from their bottles. Taking all of these factors into account, the history that makes sense is that she took too many baclofen and too many opiates. Her motivation for this is not clear, as she is not yet able to provide a coherent history. She is better this morning, but still unable to give details about the day of admission. Our plan is to allow her to recover spontaneously while monitoring her, discharging her when she is safte to go home. Her brain CAT scan from yesterday was essentially normal except for changes in the frontal part of the brain, which the radiologist is unclear about. She needs a MRI of the brain, but she is too restless at the present time to accomplish that. She has history of brain tumor that was operatively removed, and this may very well be the explanation for the changes seen on CAT scan. There was no evidence of brain bleed. I discussed the tentative plan with her daughter last evening. The patient has used CBD oil at least once in the past, and 6 sublingual drops entirely got rid of her pain. She is not using it now for reasons that are not clear. We proposed possibly changing her pain treatment to local instead of the pain clinic. When she goes home we will completely stop baclofen and any other sedat ing drugs. We will gradually decrease her opiate, and resume regular use of CBD oil. We willl make sure there is Narcan nasal spray in the home. We will need to discuss all of this with the patient when she is more cogent. There have been no changes in her pain medications for many years. The date she got admitted to the hospital this time is the anniversary date of her 's . Her O2 saturation was 94% this morning on room air. Objective - Review of Systems Generalized/Overall Review: Reports: No Symptoms Reported - remains a poor historian, but better than yesterday. she is oriented to self, others and place, but not time. she is confused about the reason for her being here. EENTM: Reports: No Symptoms Reported Respiratory: Reports: No Symptoms Reported Cardiac: Reports: No Symptoms Reported Abdominal: Reports: No Symptoms Reported Genitourinary Symptoms: Reports: No Symptoms Reported Musculoskeletal Complaints: Reports: No Symptoms Reported - still not complaining of any pain Neurological: Reports: No Symptoms Reported Skin: Reports: No Symptoms Reported Endocrine: Reports: No Symptoms Reported Misc: All systems neg except as marked - Vitals Vitals: Last Vital Signs Temp 36.6 C 02/09/19 07:03 Pulse 83 02/09/19 07:03 Resp 12 02/09/19 07:03 BP 145/39 02/09/19 07:03 Pulse Ox 94 02/09/19 07:03 - Abnormal Lab Findings Abnormal Lab Findings: Abnormal Lab Results 02/09/19 02/09/19 Range/Units 06:26 06:26 WBC 13.9 H D (4.0-10.5) K/mm3 Immature Gran # (Auto) 0.06 H (0.000-0.0310) K/mm3 Neutrophils % 81.7 H (42-75.0) % Lymphocytes % 10.6 L (20-51) % Neutrophils # 11.3 H (1.3-6.0) K/mm3 Lymphocytes # 1.47 L (1.5-3.5) k/mm3 Sodium 143 H (132-142) mmol/L Plasma Sodium 144 H (130-142) mmol/L Potassium 3.2 L (3.4-4.6) mmol/L Chloride 107 H (97-106) mmol/L Anion Gap 14.5 H (6.8-13.8) mmol/L Random Glucose 133 H (70-110) mg/dL - Exam Constitutional: Present: Cooperative, Well developed, Well nourished, No distress, Lethargic, Elderly ENT Exam: Present: normal ENT inspection, hearing grossly normal Neck: Present: normal inspection, trachea midline. Absent: lymphadenopathy (R), lymphadenopathy (L), thyromegaly Respiratory: Present: lungs clear, normal breath sounds Cardiovascular/Chest: Present: normal peripheral pulses, regular rate, rhythm, no chest tenderness, no edema, no gallop, no JVD, no murmur Abdomen: Present: Normal bowel sounds, soft, nontender, nondistended, no hepatospenomegaly. Absent: tender /Rectal: Present: Exam deferred Extremity: Present: normal inspection, no pedal edema Skin Exam: Present: normal color, warm/dry, no cyanosis Lymphatic: Present: no adenopathy Neurologic: Absent: alert, normal mood/affect Appearance: Present: appropriate appearance, neat, impaired insight Eye contact: Present: cooperative, good eye contact. Absent: normal speech Thoughts: Absent: normal thought pattern Cauti Physician Documentation - Urinary Catheter Management Urethral ([place]) Date of Insertion: 02/07/19 Time of Insertion: 19:00 Assessment/Plan - Problems/Diagnosis (1) Change in mental status Problem: Acute Qualifiers: Altered mental status type: delirium Qualified Code(s): R41.0 - Disorientation, unspecified Narrative: improving. we will get her up to chair and obtain a PT consult. we will send her home on a lower dose of opiates when it is safe to do so. she lives by herself. (2) Opioid overdose Problem: Acute Qualifiers: Encounter type: subsequent encounter Narrative: improving. (3) Hypokalemia Problem: Acute Narrative: improving. we will continue potassium in her IV and check a BMP and CBC tomorrow. Her wbc is slightly elevated, most likely related to the stress of this illness. (4) Hypoxemia Problem: Resolved (5) Chronic, continuous use of opioids Problem: Chronic (6) Chronic lumbosacral pain Problem: Chronic (7) Chronic thoracic back pain Problem: Chronic Qualifiers: Back pain laterality: midline Qualified Code(s): M54.6 - Pain in thoracic spine; G89.29 - Other chronic pain (8) Grief reaction Problem: Acute Narrative: spouse a year ago 2 days ago (9) Insomnia Problem: Chronic Qualifiers: Insomnia type: primary Qualified Code(s): F51.01 - Primary insomnia
[2019-02-09] MEDS: LEVOTHYROXINE SODIUM 175 MCG TABLET PO SCH (07:38)
--- NOTE | 2019-02-09 11:41 | PN ---
Progess Note - Interim Date: 02/09/19 Time: 11:41 Narrative: 02/09/19 11:41 She does have hypernatremia, most likely due to the two liters of saline she had at the time of admission. It is improving. The plan is to keep checking.
[2019-02-09] MEDS: BENZOCAINE/MENTHOL 16 EACH BOX MM PRN ×3 (16:28→22:33)
[2019-02-09] MEDS: ENOXAPARIN SODIUM 40 MG/0.4 ML SYRG SC SCH (20:39)
[2019-02-10] MEDS: BENZOCAINE/MENTHOL 16 EACH BOX MM PRN ×2 (03:45→09:57)
[2019-02-10] MEDS: POTASSIUM CHLORIDE 20 MEQ in DEXTROSE 5%-NORMAL SALINE 990 ML IV SCH (05:03)
[2019-02-10 06:16] LABS: Hematocrit 42.5 % (37.0-47.0); Hemoglobin 14.4 gm/dL (12.5-16.0); Mean Cell Volume 84.8 fl (78-100); Mean Corpuscular Hemoglobin 28.7 pg (27-31); Mean Corpuscular Hgb Conc 33.9 g/dl (32-36); Mean Platelet Volume 9.9 fl (8-12.5); Neutrophil # 10.5 K/mm3 (1.3-6.0); Neutrophil % 77.2 % (42-75.0); Platelet Count 369 K/mm3 (150-450); Red Blood Count 5.01 M/mm3 (4.2-5.4); Red Cell Distribution Width 13.3 % (11.5-14.0); White Blood Count 13.6 K/mm3 (4.0-10.5)
[2019-02-10 06:26] LABS: Anion Gap 15.4 mmol/L (6.8-13.8); BUN/Creatinine Ratio 14.5 (9.0-21.6); Calcium * 8.3 mg/dL (7.9-10.9); Carbon Dioxide 23.7 mmol/L (24-32.6); Estimated Creat Clear 69.7; Potassium 3.1 mmol/L (3.4-4.6)
[2019-02-10] MEDS ORDERED: LEVOTHYROXINE SODIUM 150 MCG TABLET PO SCH (07:00)
--- NOTE | 2019-02-10 11:35 | DS ---
(1) Opioid overdose Problem: Resolved Qualifiers: Encounter type: subsequent encounter (2) Acute psychosis Problem: Resolved (3) Change in mental status Problem: Resolved Qualifiers: Altered mental status type: delirium Qualified Code(s): R41.0 - Disorientation, unspecified (4) Grief reaction Problem: Acute (5) Chronic, continuous use of opioids Problem: Chronic Date of Discharge:: 02/10/19 Description of Stay: Dee Valente is a 78-year-old female patient of Dr. Harjit Smith MD who was admitted through ER with an apparent opioid overdose. She may also have overdosed on baclofen. She was given 0.2 of Narcan in the ER and she immediately awakened but was confused and combative. She was to hyperkinetic to do a CT scan on which I had planned to do the following morning. Dr. Smith took care of her yesterday and a CT was then. The CT of the head just shows age-related cortical atrophy and microvascular white matter disease that is not suspicious for tumor and there is no evidence of bleeding or acute stroke. She remained confused and combative through the night and the next day. Yesterday morning she began to be more lucent although still having moments of confusion. Today she seems completely lucid and I do not detect any confusion nor has any been reported to me this morning. Dr. Smith had given me instructions to stop the baclofen. He thought she should be tapered on her oxycodone which had been written for 4 times daily previously. He suggested going to 3 times daily in anticipation of tapering her. However Dee says that she only takes at most 1/day and still has some at home and does not believe that she should go back to taking 3 daily. So she is instructed to take the oxycodone only if she has to have it and not more than once per day. Baclofen will be discontinued. This morning she is fully ambulatory with her walker or holding onto objects walking around her bed.. Her balance seems fair. She is fully conversant and answering questions appropriately. She has used CBD oil in the past and found it helpful. Although we are not prescribing that for her she is at liberty to use the CBD oil if she finds it helpful. 6 drops daily has been what she has used in the past. She has a normal walker at home but physical therapy believes she needs a front wheeled walker. [id number] for front wheeled walker: Dee would benefit from a front wheeled walker because of weakness and gait instability. She has difficulty lifting the walker and setting it down and it would be safer to have a front wheeled walker. Procedures Performed: none Results and Findings: Pending Mircobiology Results 02/07/19 17:40 Blood Blood Culture - Preliminary NO GROWTH AFTER 48 HOURS Lab Pending Results 02/07/19 06:00: Urine Color Yellow, Urine Appearance Clear, Urine pH 5.5, Ur Specific [place] 1.025, Urine Protein Negative, Urine Glucose (UA) Negative, Urine Ketones Negative, Urine Blood Negative, Urine Nitrate Negative, Urine Bilirubin Negative, Urine Urobilinogen Normal, Ur Leukocyte Esterase Negative, Urine RBC None seen, Urine WBC Trace H, Ur Epithelial Cells 0-5, Amorphous Sediment Many - 3+ H, Urine Bacteria None seen, Urine Culture Comments No culture indicated 02/07/19 17:29: Urine Opiates Screen Positive H, Barbiturate Screen Negative, Ur Phencyclidine Scrn Negative, Urine Amphetamine Negative, U Benzodiazepines Scrn Negative, Urine Cocaine Screen Negative, Urine Marijuana (THC) Negative 02/07/19 17:40: WBC 7.1, RBC 4.60, Hgb 13.1, Hct 39.4, MCV 85.7, MCH 28.5, MCHC 33.2, RDW 13.1, Plt Count 263, MPV 10.0, Immature Gran % (Auto) 0.40, Immature Gran # (Auto) 0.03, Neutrophils % 75.6 H, Lymphocytes % 18.3 L, Monocytes % 3.9, Eosinophils % 1.0, Basophils % 0.8, Nucleated RBC % 0.0, Neutrophils # 5.4, Lymphocytes # 1.30 L, Monocytes # 0.3, Eosinophils # 0.1, Absolute Basophils 0.1 02/07/19 17:40: Sodium 140, Plasma Sodium 140, Potassium 3.8, Chloride 106, Carbon Dioxide 25.8, Anion Gap 12.0, BUN 14, Creatinine 0.80, Est GFR (Non-Af Amer) 74, BUN/Creatinine Ratio 17.5, Random Glucose 105, Calcium 8.0, Calcium Adj for Albumin 8.3 L, Total Bilirubin 0.2, AST 15, ALT 13 L, Alkaline Phosphatase 83, Troponin I Less than 0.017, Total Protein 5.9 L, Albumin 3.2 L, Lipase 72 L, TSH 0.007 L, Salicylates 8.9, Acetaminophen 6.1 L, Ethyl Alcohol Less than 3.0 02/07/19 17:40: Free T4 2.03 H 02/07/19 17:45: Lactic Acid, Venous 0.9 02/07/19 20:20: Salicylates 7.4 02/07/19 22:21: Acetaminophen Less than 0.2 L 02/08/19 06:38: WBC 11.2 H D, RBC 5.19, Hgb 14.9, Hct 44.1, MCV 85.0, MCH 28.7, MCHC 33.8, RDW 13.2, Plt Count 325, MPV 9.9, Immature Gran % (Auto) 0.40, Immature Gran # (Auto) 0.04 H, Neutrophils % 86.8 H, Lymphocytes % 8.4 L, Monocytes % 4.0, Eosinophils % 0.0, Basophils % 0.4, Nucleated RBC % 0.0, Neutrophils # 9.8 H, Lymphocytes # 0.94 L, Monocytes # 0.5, Eosinophils # 0.0, Absolute Basophils 0.0 02/08/19 06:38: Sodium 147 H, Plasma Sodium 147 H, Potassium 3.1 L, Chloride 107 H, Carbon Dioxide 27.3, Anion Gap 15.8 H, BUN 11, Creatinine 0.70, Est GFR (Non-Af Amer) 86, BUN/Creatinine Ratio 15.7, Random Glucose 126 H, Calcium 8.8, Calcium Adj for Albumin 8.5, Total Bilirubin 0.3, AST 22, ALT 15 L, Alkaline Phosphatase 103, Total Protein 7.1, Albumin 4.0 02/09/19 06:26: WBC 13.9 H D, RBC 4.80, Hgb 13.6, Hct 40.4, MCV 84.2, MCH 28.3, MCHC 33.7, RDW 13.5, Plt Count 325, MPV 10.1, Immature Gran % (Auto) 0.40, Immature Gran # (Auto) 0.06 H, Neutrophils % 81.7 H, Lymphocytes % 10.6 L, Monocytes % 6.6, Eosinophils % 0.2, Basophils % 0.5, Nucleated RBC % 0.0, Neutrophils # 11.3 H, Lymphocytes # 1.47 L, Monocytes # 0.9, Eosinophils # 0.0, Absolute Basophils 0.1 02/09/19 06:26: Sodium 143 H, Plasma Sodium 144 H, Potassium 3.2 L, Chloride 107 H, Carbon Dioxide 24.7, Anion Gap 14.5 H, BUN 9, Creatinine 0.60, Est GFR (Non- Af Amer) 103, BUN/Creatinine Ratio 15.0, Random Glucose 133 H, Calcium 8.4 02/10/19 05:40: Sodium 142, Plasma Sodium 142, Potassium 3.1 L, Chloride 106, Carbon Dioxide 23.7 L, Anion Gap 15.4 H, BUN 8, Creatinine 0.55, Est GFR (Non-Af Amer) 114, BUN/Creatinine Ratio 14.5, Random Glucose 131 H, Calcium 8.3 02/10/19 06:10: WBC 13.6 H, RBC 5.01, Hgb 14.4, Hct 42.5, MCV 84.8, MCH 28.7, MCHC 33.9, RDW 13.3, Plt Count 369, MPV 9.9, Immature Gran % (Auto) 0.40, Immature Gran # (Auto) 0.06 H, Neutrophils % 77.2 H, Lymphocytes % 13.8 L, M onocytes % 7.9, Eosinophils % 0.3, Basophils % 0.4, Nucleated RBC % 0.0, Neutrophils # 10.5 H, Lymphocytes # 1.88, Monocytes # 1.1 H, Eosinophils # 0.0, Absolute Basophils 0.1 Discharge Location: Home Disposition: Home self-care Condition: Fair Face to Face Encounter completed per [facility] Guidelines: Yes - For front wheel walker. See above. Discharge Activity: Activity as tolerated Discharge Diet: General/regular food Referrals: Harjit Bravo MD [Primary Care Provider] - Problem Oriented Discharge Instructions to Patient/Family: Drug Overdose, Opioid Overdose Additional Patient Instructions (free text): A family member should assist with setting up her meds and monitor her opiate use. A family member should come with her to each doctor's visit. See Dr. David Cage in his office within the next 2 weeks. Prescriptions (Any new or edited meds): Naloxone HCl [Narcan] 4 mg NS ONCE PRN #1 spray PRN Reason: Opiate Reversal Transmission Status: Received by Juan Pires [place], [place] oxyCODONE HCL [Oxycodone HCl] 10 mg PO DAILY PRN #1 tab PRN Reason: Pain Complete Home Medications List: Complete Home Medication List: Calcium Carbonate/Vitamin D3 [Calcium 600 + D Tablet] 2 ea PO DAILY 03/14/15 Gluc Diaz/Chondro Diaz A/Vit C/Mn [Glucosamine Chondroitin Tab] 2 ea PO DAILY 04/20/16 Synthroid 175 mcg tablet 175 mcg PO DAILY #30 tab NS 02/09/18 furosemide 20 mg tablet 30 mg PO DAILY tab 07/20/18 Aspirin/Acetaminophen/Caffeine [Excedrin Migraine Caplet] 2 ea PO DAILY PRN 07/21/18 folic acid 1 mg tablet 1 mg PO DAILY #30 tab 08/28/18 simvastatin 40 mg tablet See Rx Instructions .ROUTE .COMPLEX #30 tablet 10/16/18 trazodone 100 mg tablet 200 mg PO HS #60 tab 01/22/19 Benzocaine/Menthol [Cepacol Sore Throat] 1 ea MM Q2H PRN box 02/10/19 Levothyroxine Sodium [Synthroid] 150 mcg PO DAILY@0700 tab 02/10/19 Naloxone HCl [Narcan] 4 mg NS ONCE PRN #1 spray 02/10/19 oxyCODONE HCL [Oxycodone HCl] 10 mg PO DAILY PRN #1 tab 02/10/19
[2019-02-10 15:50] VITALS: BP 165/91
== END 2019-02-10 13:40 | disposition home or self-care (01) | DRG 918 ==
LOC: ER 16:45 → SCU 19:59
PROVIDERS: ADMIT Family Medicine; ATTEND Allergy & Immunology
DX: E87.0 Hyperosmolality and hypernatremia; E87.6 Hypokalemia; F32.9 Major depressive disorder, single episode, unspecified; F23 Brief psychotic disorder; E03.9 Hypothyroidism, unspecified; M51.37 Other intervertebral disc degeneration, lumbosacral region; R53.1 Weakness; I10 Essential (primary) hypertension; E78.5 Hyperlipidemia, unspecified; R09.02 Hypoxemia; F11.929 Opioid use, unspecified with intoxication, unspecified; T40.2X1A Poisoning by other opioids, accidental (unintentional), initial encounter; F43.20 Adjustment disorder, unspecified; G89.4 Chronic pain syndrome; R26.9 Unspecified abnormalities of gait and mobility
CPT/HCPCS: 36415; 70450; 71010; 71045; 80048; 80053; 80307; 80329; 81001; 83605; 83690; 84439; 84443; 84484; 85025; 87040; 87086; 93005; 96372; 96374; 97110; 97116; 97161; 99285; G0480

== ENCOUNTER 2020-02-14 15:22 | Observation (INO) ==
[2020-02-14] MEDS ORDERED: ONDANSETRON HCL/PF 2 MG/ML VIAL IV ONE (16:08)
[2020-02-14] MEDS ORDERED: NORMAL SALINE 1,000 ML IV ONE ×2 (16:08→18:52)
[2020-02-14 16:40] LABS: Hematocrit 24.8 % (37.0-47.0); Mean Cell Volume 84.1 fl (78-100); Mean Corpuscular Hemoglobin 26.8 pg (27-31); Mean Corpuscular Hgb Conc 31.9 g/dl (32-36); Mean Platelet Volume 9.8 fl (8-12.5); Platelet Count 679 K/mm3 (150-450); Red Blood Count 2.95 M/mm3 (4.2-5.4); Red Cell Distribution Width 15.5 % (11.5-14.0); White Blood Count 25.3 K/mm3 (4.0-10.5)
[2020-02-14 16:53] LABS: Hemoglobin 7.9 gm/dL (12.5-16.0)
[2020-02-14 16:55] LABS: Total Cells Counted 100
--- NOTE | 2020-02-14 17:06 | ERNOTE ---
Syncope ER HPI Date of Service: 02/14/20 Stated Complaint: pancre. cancer no appetite, passed out earlier Time Seen by Provider: 02/14/20 16:07 Source: patient Exam Limitations: no limitations Immunizations: IMMUNIZATION HX Immunizations Up to Date Yes History of Influenza Vaccine Yes Hx Pneumococcal Vaccination Yes Allergies/Adverse Reactions: Allergies doxycycline Adverse Reaction (Intermediate, Verified 02/14/20 16:06) Diarrhea tizanidine Adverse Reaction (Intermediate, Verified 02/14/20 16:06) Mental status changes Home Medications: HOME MEDICATIONS Gluc Diaz/Chondro Diaz A/Vit C/Mn [Glucosamine Chondroitin Tab] 2 ea PO DAILY 0 04/20/16 [Last Taken 07/20/18] furosemide 20 mg tablet 30 mg PO DAILY tab 07/20/18 [Last Taken 07/20/18] Aspirin/Acetaminophen/Caffeine [Excedrin Migraine Caplet] 2 ea PO DAILY PRN 07/21/18 [Last Taken Unknown] folic acid 1 mg tablet 1 mg PO DAILY #30 tab 08/28/18 [Last Taken Unknown] mirtazapine 15 mg tablet 15 mg PO HS #30 tab 05/02/19 [Last Taken Unknown] duloxetine 30 mg capsule,delayed release 30 mg PO DAILY #90 cap 08/27/19 [Last Taken Unknown] levothyroxine 150 mcg tablet 150 mcg PO DAILY@0700 #90 tab 09/11/19 [Last Taken Unknown] Cyclobenzaprine HCl [Flexeril] 10 mg PO TID PRN #30 tab 12/22/19 [Last Taken Unknown] hydrOXYzine HCL [Atarax] 25 mg PO QID PRN #120 tab 12/22/19 [Last Taken Unknown] potassium chloride 10 mEq tablet,extended release 10 meq PO BID #60 tab 01/03/20 [Last Taken Unknown] simvastatin 40 mg tablet 40 mg PO HS #30 tab 01/21/20 [Last Taken Unknown] triamcinolone acetonide 0.1 % topical cream 1 applic TP BID 02/01/20 [Last Taken Unknown] zolpidem 10 mg tablet 10 mg PO HS #30 tab 02/05/20 [Last Taken Unknown] duloxetine 30 mg capsule,delayed release 30 mg PO DAILY 02/12/20 [Last Taken Unknown] ondansetron 8 mg disintegrating tablet 8 mg PO Q8H PRN 02/12/20 [Last Taken Unknown] prochlorperazine maleate 10 mg tablet 10 mg PO Q6H PRN 02/12/20 [Last Taken Unknown] - History of Present Illness Narrative: Patient has been gradually declining at home. Generalized weakness. Passed out today on the toilet. Not eating or drinking. No pain at this time. Has pancreatic cancer with apparent biliary stent and possible duodenal stent. No acute abdominal pain. Not eating or drinking well, gradually worsning generalized weakness. Cannot stand without assistance here and BP low. Prior Episodes: Present: single episode today Symptoms prior to episode: Present: none Activity at time of episode: Present: other - on the toilet Character of event: Present: brief (seconds) Location of Injury: Present: none Current Symptoms: Present: other - generalized weakness Prior Treament: Reports: recently seen Review of Systems - Review of Systems Constitutional: Absent: fever EYE: Present: no symptoms reported ENT: Absent: sore throat Respiratory: Absent: shortness of breath Cardiology: Absent: chest pain Gastrointestinal/Abdominal: Present: See HPI, other - she denies any abdominal pain at this time Genitourinary: Present: other - recent UTI, on ABx Musculoskeletal: Present: other - no injuries Skin: Present: no symptoms reported Neurological: Present: See HPI All Other Systems: All systems neg except as marked Medical History (Last Reviewed 02/14/20 @ 17:04 by Audi Ny MD) Head mass pancreatic No history of alcohol use Non-tobacco user Wears glasses Anemia Onset Date: ~08/12/16 Chronic pain syndrome Onset Date: ~05/22/15 Degeneration of lumbar or lumbosacral intervertebral disc Onset Date: Unknown Depression Onset Date: ~05/19/12 Essential hypertension Onset Date: ~10/02/13 Generalized anxiety disorder Onset Date: ~09/02/12 Hot flashes Onset Date: ~2012 Hyperlipidemia Onset Date: ~05/22/15 Hypokalemia Onset Date: ~08/12/16 Hypothyroidism Onset Date: ~05/22/15 Insomnia Onset Date: ~08/12/16 Internal derangement of knee Onset Date: ~09/13/14 Right Low back pain Onset Date: ~09/20/13 Myalgia and myositis, unspecified Onset Date: ~09/14/12 Neuropathy Onset Date: Unknown Left arm Osteopenia Onset Date: Unknown Upper back pain Onset Date: ~05/19/12 Acute pyloric channel ulcer Onset Date: ~04/27/16 CTS (carpal tunnel syndrome) Onset Date: ~06/05/14 bilateral Cancer Onset Date: Unknown 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 Edema Onset Date: ~09/14/16 Gastritis Onset Date: ~08/12/16 History of EKG Onset Date: ~07/07/04 History of blood transfusion Onset Date: Unknown 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 Onset Date: Unknown Post-menopausal Onset Date: ~11/01/13 Pyloric stenosis, acquired Onset Date: ~04/27/16 Rectal bleeding Onset Date: ~11/09/05 Spondylosis Onset Date: Unknown Synovial cyst of popliteal space [Garcia], right knee Onset Date: ~06/05/14 Vocal cord paresis Onset Date: ~07/2004 Surgical History: Surgical History (Last Reviewed 02/14/20 @ 17:04 by Audi Ny MD) History of ERCP [facility] 12/28/19 S/P carpal tunnel release Onset Date: 07/21/18 left-endoscopic H/O cervical spine x-ray Onset Date: ~02/11/03 H/O colonoscopy Onset Date: ~04/26/16 11/09/05: Liliam; negative 04/26/16: Normal H/O knee surgery Onset Date: ~05/24/17 R knee H/O mammogram Onset Date: ~03/02/06 03/02/2006: benign 01/20/2005: benign 01/08/2004: benign 10/05/2002 07/11/2001 H/O thyroidectomy Onset Date: ~07/2004 Goiter H/O x-ray of lumbar spine Onset Date: ~02/11/03 History of diagnostic ultrasound Onset Date: Unknown 06/26/2004: Thyroid/neck soft tissue 01/14/2004: echocardiogram - stress test post coronary artery bypass grafting surgery 10/08/2002: left breast History of esophagogastroduodenoscopy (EGD) Onset Date: ~04/26/16 With biopsy; Bagan - clotest negative, retrieval of gastric FB (screw cap), balloon dilation of the pylorus to 15mm S/P dilation and curettage Onset Date: Unknown X5 Family History: Family History (This Medical Record has been edited. Action required.) Aunt Breast cancer Brother , age 67 Diabetes MVA (motor vehicle accident) Father , age 80 Multiple myeloma Grandfather , Maternal Cirrhosis of liver Grandfather , Paternal Cancer Grandmother , Maternal Kidney disease Thyroid disease Grandmother , Paternal Heart disease Mother , age 90 Osteoporosis Myocardial infarction Hypertension Daughter Alive and well Son Alive and well Social History: (Last Reviewed 02/14/20 @ 17:05 by Audi Ny MD) Social History: adopted: No mcfp: No Marital status: lives independently: No Highest level of school completed/degree received: some college, no degree Service: No Tobacco: Smoking Status: Never smoker Alcohol: alcohol intake: former Substance Use: substance use type: does not use Dietary Habits: caffeine: Yes Physical Exam - Physical Exam General Appearance: Present: alert, other - in bed with eyes closed, appears chronically ill and frail Head Exam: Present: normal inspection, no evidence of injury Eye Exam: Normal inspection: bilateral, PERRL: bilateral Ears, Nose, Throat: Present: dry mucous membranes Neck: Present: normal inspection Respiratory: Present: no respiratory distress, normal breath sounds, no accessory muscle use, lungs clear Cardiovascular/Chest: Present: normal peripheral pulses, tachycardia Gastrointestinal/Abdominal: Present: normal bowel sounds, nontender, nondistended, soft Back Exam: Absent: CVA tenderness (R), CVA tenderness (L) Extremity Exam: Present: other - no gross deformity Neurological Exam: Present: alert, other - generalized weakness, no acute unilateral weakness noted Skin Exam: Present: warm/dry, pallor Progress - Results and Orders Patient's Lab Results:: I have reviewed the patient's lab results. - Vital Signs Patient's Vital Signs:: I have reviewed the patient's vital signs. Vital Signs: Vital Signs 02/14/20 15:23 Temperature 36.8 C Pulse Rate 115 H Respiratory Rate 25 H Blood Pressure 79/47 L O2 Sat by Pulse Oximetry 100 - EKG EKG #1 EKG: NSR EKG read: Interp. by me EKG Comments: NSR rate 79. Non-specific ST/T wave changes, no STEMI noted - Progress/Reassessment Chief Complaint: Syncopal Episode Progress Note-Subjective: 02/14/20 19:00 Patient has dehydration and has received IV fluids. She has anemia and I have ordered 1U PRBCs to be transfused. I discussed the case with Dr Wilson, will will initiate Zosyn 3.375g IV Q6h for now and hold on any imaging. Her BP has improved and she has no abdominal pain or tenderness. Patient is agreeable. I discussed warning signs and reasons to return as well as the need for close f/u. Departure Clinical Impression: Hypotension, Dehydration, Anemia, Syncope, Failure to thrive, Pancreatic cancer - Departure Disposition: Still a patient Condition: Fair Referrals: Eliecer Hou DO [Primary Care Provider] -
[2020-02-14 17:09] LABS: ALT 26 U/L (19-67); AST 36 U/L (0-48); Albumin * 1.6 gm/dl (3.4-5.0); Alkaline Phosphatase * 465 U/L (50-170); Anion Gap 12.2 mmol/L (6.8-13.8); BUN/Creatinine Ratio 35.6 (9.0-21.6); Bilirubin, Total 0.6 mg/dL (0.0-1.1); Blood Urea Nitrogen 42 mg/dL (3-23); Ca. Corrected For Albumin 7.7 mg/dL (8.4-10.2); Calcium * 6.1 mg/dL (7.9-10.9); Carbon Dioxide 26.9 mmol/L (24-32.6); Chloride 95 mmol/L (97-106); Glucose * 161 mg/dL (70-110); Lipase 69 U/L (73-393); Potassium 3.1 mmol/L (3.4-4.6); Sodium 131 mmol/L (132-142); Total Protein 5.3 gm/dL (6.2-8.2); Troponin I Less than 0.017 ng/mL (0.00-0.10)
[2020-02-14 17:19] LABS: Band 2 % (0-2.0); Lymphocyte 10 % (20-51); Monocyte 3 % (0-9); Neutrophil 85 % (42-75); Neutrophil # 21.5 K/mm3 (1.3-6.0)
[2020-02-14 17:22] LABS: Anisocytosis 1+; Platelet Estimate Increased (NORMAL)
[2020-02-14 17:23] LABS: Giant Platelets Trace
[2020-02-14 17:27] LABS: Urine Bilirubin 1 mg/dl (NEGATIVE); Urine Blood Negative /ul (NEGATIVE); Urine Ketone 5 mg/dL (NEGATIVE); Urine Nitrite Negative (NEGATIVE); Urine Protein Negative (NEGATIVE); Urine Specific Gravity 1.015 SP.GR. (1.005-1.010); Urine Urobilinogen Normal (NORMAL); Urine pH 6.5 pH (5.0-7.0)
[2020-02-14 17:43] LABS: Urine Appearance Clear (CLEAR); Urine Bacteria TRACE; Urine Color Yellow; Urine RBC TRACE /hpf (0-5); Urine WBC 0-5 /hpf (0-5)
[2020-02-14] MEDS ORDERED: PIPERACILLIN SODIUM/TAZOBACTAM 3.375 GM in DEXTROSE 5 % IN WATER 100 ML IV ONE ×2 (17:48)
[2020-02-14] MEDS ORDERED: POTASSIUM CHLORIDE 20 MEQ TABLET.SA PO ONE (18:48)
[2020-02-14] MEDS ORDERED: POTASSIUM BICARBONATE/CIT AC 25 MEQ TABLET.EFF PO ONE (18:58)
[2020-02-14] MEDS: PIPERACILLIN SODIUM/TAZOBACTAM 3.375 GM in DEXTROSE 5 % IN WATER 100 ML IV SCH ×2 (18:59)
[2020-02-14] MEDS ORDERED: ZOLPIDEM TARTRATE 10 MG TABLET PO PRN (23:02)
[2020-02-14] MEDS ORDERED: NORMAL SALINE 1,000 ML IV PRN (23:22)
[2020-02-15] MEDS: PIPERACILLIN SODIUM/TAZOBACTAM 3.375 GM in DEXTROSE 5 % IN WATER 100 ML IV SCH ×4 (01:10→07:14)
[2020-02-15 01:21] LABS: Hematocrit 26.5 % (37.0-47.0); Hemoglobin 8.4 gm/dL (12.5-16.0); Mean Cell Volume 85.5 fl (78-100); Mean Corpuscular Hemoglobin 27.1 pg (27-31); Mean Corpuscular Hgb Conc 31.7 g/dl (32-36); Mean Platelet Volume 10.6 fl (8-12.5); Platelet Count 430 K/mm3 (150-450); Red Cell Distribution Width 15.4 % (11.5-14.0); White Blood Count 19.5 K/mm3 (4.0-10.5)
[2020-02-15] MEDS: ACETAMINOPHEN 500 MG TABLET PO PRN ×2 (02:07→11:17)
[2020-02-15] MEDS ORDERED: PIPERACILLIN SODIUM/TAZOBACTAM 3.375 GM in DEXTROSE 5 % IN WATER 100 ML IV SCH ×2 (07:15)
[2020-02-15] MEDS ORDERED: PROCHLORPERAZINE MALEATE 10 MG TABLET PO PRN (08:38)
[2020-02-15] MEDS ORDERED: ONDANSETRON 8 MG TAB.RAPDIS PO PRN (08:38)
[2020-02-15] MEDS ORDERED: ENOXAPARIN SODIUM 40 MG/0.4 ML SYRG SC SCH (08:45)
[2020-02-15] MEDS ORDERED: POTASSIUM CHLORIDE 10 MEQ TABLET.SA PO SCH (09:00)
--- NOTE | 2020-02-15 15:32 | HPDIS ---
Chief Complaint - Chief Complaint Date of Service: 02/15/20 Time of Service: 15:29 Chief Complaint: weakness History of Present Illness: 79-year-old female with history of pancreatic cancer admitted last night for generalized weakness and presumed hypotension. Lab work in the ER showed her to be anemic at 7.9. She was transfused 1 unit packed red blood cells. 2 weeks previously prior to restenting patient's hemoglobin was 12.9. Patient has had 2 black stools since being here but this is been ongoing since her stenting. Patient was placed in observation where she was monitored. Hemoglobin up to 8.4 this morning. Vital signs are stable and she is been afebrile otherwise. Patient states she feels better today though is still fairly weak. Patient denies abdominal pain, nausea, vomiting. She still endorses dark stools which again has been ongoing since her stenting up in [place]. Her blood pressures been stable. Medical History (Last Reviewed 02/14/20 @ 21:55 by Juana Tabor RN) Head mass pancreatic No history of alcohol use Non-tobacco user Wears glasses Anemia Onset Date: ~08/12/16 Chronic pain syndrome Onset Date: ~05/22/15 Degeneration of lumbar or lumbosacral intervertebral disc Onset Date: Unknown Depression Onset Date: ~05/19/12 Essential hypertension Onset Date: ~10/02/13 Generalized anxiety disorder Onset Date: ~09/02/12 Hot flashes Onset Date: ~2012 Hyperlipidemia Onset Date: ~05/22/15 Hypokalemia Onset Date: ~08/12/16 Hypothyroidism Onset Date: ~05/22/15 Insomnia Onset Date: ~08/12/16 Internal derangement of knee Onset Date: ~09/13/14 Right Low back pain Onset Date: ~09/20/13 Myalgia and myositis, unspecified Onset Date: ~09/14/12 Neuropathy Onset Date: Unknown Left arm Osteopenia Onset Date: Unknown Upper back pain Onset Date: ~05/19/12 Acute pyloric channel ulcer Onset Date: ~04/27/16 CTS (carpal tunnel syndrome) Onset Date: ~06/05/14 bilateral Cancer Onset Date: Unknown 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 Edema Onset Date: ~09/14/16 Gastritis Onset Date: ~08/12/16 History of EKG Onset Date: ~07/07/04 History of blood transfusion Onset Date: Unknown 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 Onset Date: Unknown Post-menopausal Onset Date: ~11/01/13 Pyloric stenosis, acquired Onset Date: ~04/27/16 Rectal bleeding Onset Date: ~11/09/05 Spondylosis Onset Date: Unknown Synovial cyst of popliteal space [Garcia], right knee Onset Date: ~06/05/14 Vocal cord paresis Onset Date: ~07/2004 Surgical History: Surgical History (Last Reviewed 02/14/20 @ 21:55 by Juana Tabor RN) History of ERCP [facility] 12/28/19 S/P carpal tunnel release Onset Date: 07/21/18 left-endoscopic H/O cervical spine x-ray Onset Date: ~02/11/03 H/O colonoscopy Onset Date: ~04/26/16 11/09/05: [place]; negative 04/26/16: Normal H/O knee surgery Onset Date: ~05/24/17 R knee H/O mammogram Onset Date: ~03/02/06 03/02/2006: benign 01/20/2005: benign 01/08/2004: benign 10/05/2002 07/11/2001 H/O thyroidectomy Onset Date: ~07/2004 Goiter H/O x-ray of lumbar spine Onset Date: ~02/11/03 History of diagnostic ultrasound Onset Date: Unknown 06/26/2004: Thyroid/neck soft tissue 01/14/2004: echocardiogram - stress test post coronary artery bypass grafting surgery 10/08/2002: left breast History of esophagogastroduodenoscopy (EGD) Onset Date: ~04/26/16 With biopsy; [facility] - clotest negative, retrieval of gastric FB (screw cap), balloon dilation of the pylorus to 15mm S/P dilation and curettage Onset Date: Unknown X5 Family History: Family History (Last Reviewed 02/14/20 @ 21:55 by Juana Tabor RN) Aunt Breast cancer Brother , age 67 Diabetes MVA (motor vehicle accident) Father , age 80 Multiple myeloma Grandfather , Maternal Cirrhosis of liver Grandfather , Paternal Cancer Grandmother , Maternal Kidney disease Thyroid disease Grandmother , Paternal Heart disease Mother , age 90 Osteoporosis Myocardial infarction Hypertension Daughter Alive and well Son Alive and well Social History: (Last Reviewed 02/14/20 @ 21:55 by Juana Tabor RN) Social History: adopted: No correction: No Marital status: lives independently: No Highest level of school completed/degree received: some college, no degree Service: No Tobacco: Smoking Status: Never smoker Alcohol: alcohol intake: former Substance Use: substance use type: does not use Dietary Habits: caffeine: Yes Review Of Systems (GEN) - Review of Systems Generalized/Overall Review: Present: Weakness, Malaise. Absent: Chills, Fever EENTM: Present: No Symptoms Reported Respiratory: Absent: Cough, Shortness of Breath Cardiac: Present: No Symptoms Reported Abdominal: Present: Melena. Absent: Nausea, Vomiting, Hematemesis, Abdominal Pain, Constipation Genitourinary: Absent: Burning, Itching, Urgency, Frequency Musculoskeletal: Present: No Symptoms Reported Neurological: Present: No Symptoms Reported Skin: Present: No Symptoms Reported Immunizations: IMMUNIZATION HX Immunizations Up to Date Yes History of Influenza Vaccine Yes Hx Pneumococcal Vaccination Yes Allergies/Adverse Reactions: Allergies Allergy/AdvReac Type Severity Reaction Status Date / Time doxycycline AdvReac Intermediate Diarrhea Verified 02/14/20 16:06 tizanidine AdvReac Intermediate Mental Verified 02/14/20 16:06 status changes Home Medications: HOME MEDICATIONS furosemide 20 mg tablet 30 mg PO DAILY tab 07/20/18 [Last Taken 07/20/18] Aspirin/Acetaminophen/Caffeine [Excedrin Migraine Caplet] 2 ea PO DAILY PRN 07/21/18 [Last Taken Unknown] folic acid 1 mg tablet 1 mg PO DAILY #30 tab 08/28/18 [Last Taken Unknown] mirtazapine 15 mg tablet 15 mg PO HS #30 tab 05/02/19 [Last Taken Unknown] levothyroxine 150 mcg tablet 150 mcg PO DAILY@0700 #90 tab 09/11/19 [Last Taken Unknown] potassium chloride 10 mEq tablet,extended release 10 meq PO BID #60 tab 01/03/20 [Last Taken Unknown] simvastatin 40 mg tablet 40 mg PO HS #30 tab 01/21/20 [Last Taken Unknown] ondansetron 8 mg disintegrating tablet 8 mg PO Q8H PRN 02/12/20 [Last Taken Unknown] Ondansetron [Zofran Odt] 8 mg PO Q8H PRN #30 tab.rapdis 02/15/20 [Last Taken Unknown] Prochlorperazine Maleate [Compazine] 10 mg PO Q6H PRN #30 02/15/20 [Last Taken Unknown] Zolpidem Tartrate [Ambien] 5 mg PO HS PRN #30 tab 02/15/20 [Last Taken Unknown] Exam - Exam Vital Signs: Vital Signs - Last Taken Temp 36.7 C 02/15/20 14:28 Pulse 89 02/15/20 14:28 Resp 16 02/15/20 14:28 BP 105/62 02/15/20 14:28 Pulse Ox 98 02/15/20 14:28 Constitutional: Present: Alert, Oriented x3, Cooperative, Elderly ENT Exam: Present: hearing grossly normal. Absent: nasal congestion, nasal drainage Eye Exam: bilateral eye: normal inspection, EOMI Neck: Present: non-tender, supple Respiratory: Present: lungs clear, normal breath sounds. Absent: respiratory distress Cardiovascular/Chest: Present: regular rate, rhythm, no murmur Abdomen: Present: Normal bowel sounds, soft, nontender, nondistended Skin Exam: Present: warm/dry, pallor. Absent: jaundice Appearance: Present: appropriate appearance, appropriate insight Eye contact: Present: cooperative, good eye contact Thoughts: Present: normal thought pattern, normal mood /affect Diagnostic Studies: Abnormal Lab Results 02/14/20 02/14/20 02/14/20 Range/Units 16:30 16:30 17:00 WBC 25.3 H (4.0-10.5) K/mm3 RBC 2.95 L (4.2-5.4) M/mm3 Hgb 7.9 L* D (12.5-16.0) gm/dL Hct 24.8 L (37.0-47.0) % MCH 26.8 L (27-31) pg MCHC 31.9 L (32-36) g/dl RDW 15.5 H (11.5-14.0) % Plt Count 679 H (150-450) K/mm3 Neutrophils % (Manual) 85 H (42-75) % Lymphocytes % (Manual) 10 L (20-51) % Neutrophils # (Manual) 21.5 H (1.3-6.0) K/mm3 Platelet Estimate Increased H (NORMAL) Sodium 131 L (132-142) mmol/L Potassium 3.1 L D (3.4-4.6) mmol/L Chloride 95 L (97-106) mmol/L BUN 42 H D (3-23) mg/dL Est GFR (Non-Af Amer) 47 L D (60-130) mL/min BUN/Creatinine Ratio 35.6 H (9.0-21.6) Random Glucose 161 H (70-110) mg/dL Calcium 6.1 L (7.9-10.9) mg/dL Calcium Adj for Albumin 7.7 L (8.4-10.2) mg/dL Alkaline Phosphatase 465 H (50-170) U/L Total Protein 5.3 L (6.2-8.2) gm/dL Albumin 1.6 L (3.4-5.0) gm/dl Lipase 69 L (73-393) U/L Urine Bilirubin 1 H (NEGATIVE) mg/dl Urine Ictotest Positive H (NEGATIVE) Crossmatch 02/14/20 02/15/20 Range/Units 17:00 01:00 WBC 19.5 H D (4.0-10.5) K/mm3 RBC 3.10 L (4.2-5.4) M/mm3 Hgb 8.4 L (12.5-16.0) gm/dL Hct 26.5 L (37.0-47.0) % MCH (27-31) pg MCHC 31.7 L (32-36) g/dl RDW 15.4 H (11.5-14.0) % Plt Count (150-450) K/mm3 Neutrophils % (Manual) (42-75) % Lymphocytes % (Manual) (20-51) % Neutrophils # (Manual) (1.3-6.0) K/mm3 Platelet Estimate (NORMAL) Sodium (132-142) mmol/L Potassium (3.4-4.6) mmol/L Chloride (97-106) mmol/L BUN (3-23) mg/dL Est GFR (Non-Af Amer) (60-130) mL/min BUN/Creatinine Ratio (9.0-21.6) Random Glucose (70-110) mg/dL Calcium (7.9-10.9) mg/dL Calcium Adj for Albumin (8.4-10.2) mg/dL Alkaline Phosphatase (50-170) U/L Total Protein (6.2-8.2) gm/dL Albumin (3.4-5.0) gm/dl Lipase (73-393) U/L Urine Bilirubin (NEGATIVE) mg/dl Urine Ictotest (NEGATIVE) Crossmatch See Detail Microbiology 02/14/20 16:52 Urine Culture - Preliminary Urine,Catheterized No Growth Laboratory Results WBC 19.5 K/mm3 (4.0-10.5) H D 02/15/20 01:00 RBC 3.10 M/mm3 (4.2-5.4) L 02/15/20 01:00 Hgb 8.4 gm/dL (12.5-16.0) L 02/15/20 01:00 Hct 26.5 % (37.0-47.0) L 02/15/20 01:00 MCV 85.5 fl (78-100) 02/15/20 01:00 MCH 27.1 pg (27-31) 02/15/20 01:00 MCHC 31.7 g/dl (32-36) L 02/15/20 01:00 RDW 15.4 % (11.5-14.0) H 02/15/20 01:00 Plt Count 430 K/mm3 (150-450) 02/15/20 01:00 MPV 10.6 fl (8-12.5) 02/15/20 01:00 Neutrophils % (Manual) 85 % (42-75) H 02/14/20 16:30 Band Neuts % (Manual) 2 % (0-2.0) 02/14/20 16:30 Lymphocytes % (Manual) 10 % (20-51) L 02/14/20 16:30 Monocytes % (Manual) 3 % (0-9) 02/14/20 16:30 Neutrophils # (Manual) 21.5 K/mm3 (1.3-6.0) H 02/14/20 16:30 Lymphocytes # (Manual) 2.5 k/mm3 (1.5-3.5) 02/14/20 16:30 Monocytes # (Manual) 0.8 k/mm3 (0.0-1.0) 02/14/20 16:30 Platelet Estimate Increased (NORMAL) H 02/14/20 16:30 Giant Platelets Trace 02/14/20 16:30 Anisocytosis 1+ 02/14/20 16:30 Sodium 131 mmol/L (132-142) L 02/14/20 16:30 Plasma Sodium 132 mmol/L (130-142) 02/14/20 16:30 Potassium 3.1 mmol/L (3.4-4.6) L D 02/14/20 16:30 Chloride 95 mmol/L (97-106) L 02/14/20 16:30 Carbon Dioxide 26.9 mmol/L (24-32.6) 02/14/20 16:30 Anion Gap 12.2 mmol/L (6.8-13.8) 02/14/20 16:30 BUN 42 mg/dL (3-23) H D 02/14/20 16:30 Creatinine 1.18 mg/dL (0.4-1.4) 02/14/20 16:30 Est GFR (Non-Af Amer) 47 mL/min (60-130) L D 02/14/20 16:30 BUN/Creatinine Ratio 35.6 (9.0-21.6) H 02/14/20 16:30 Random Glucose 161 mg/dL (70-110) H 02/14/20 16:30 Lactic Acid, Venous 2.0 mmol/L (0.4-2.0) 02/14/20 17:00 Calcium 6.1 mg/dL (7.9-10.9) L 02/14/20 16:30 Calcium Adj for Albumin 7.7 mg/dL (8.4-10.2) L 02/14/20 16:30 Total Bilirubin 0.6 mg/dL (0.0-1.1) 02/14/20 16:30 AST 36 U/L (0-48) 02/14/20 16:30 ALT 26 U/L (19-67) 02/14/20 16:30 Alkaline Phosphatase 465 U/L (50-170) H 02/14/20 16:30 Troponin I Less than 0.017 ng/mL (0.00-0.10) 02/14/20 16:30 Total Protein 5.3 gm/dL (6.2-8.2) L 02/14/20 16:30 Albumin 1.6 gm/dl (3.4-5.0) L 02/14/20 16:30 Lipase 69 U/L (73-393) L 02/14/20 16:30 Urine Color Yellow 02/14/20 17:00 Urine Appearance Clear (CLEAR) 02/14/20 17:00 Urine pH 6.5 pH (5.0-7.0) 02/14/20 17:00 Ur Specific [place] 1.015 SP.GR. (1.005-1.010) 02/14/20 17:00 Urine Protein Negative mg/dL (NEGATIVE) 02/14/20 17:00 Urine Glucose (UA) Negative mg/dL (NEGATIVE) 02/14/20 17:00 Urine Ketones 5 mg/dL (NEGATIVE) 02/14/20 17:00 Urine Blood Negative /ul (NEGATIVE) 02/14/20 17:00 Urine Nitrate Negative (NEGATIVE) 02/14/20 17:00 Urine Bilirubin 1 mg/dl (NEGATIVE) H 02/14/20 17:00 Urine Ictotest Positive (NEGATIVE) H 02/14/20 17:00 Urine Urobilinogen Normal EU/dl (NORMAL) 02/14/20 17:00 Ur Leukocyte Esterase Negative /ul (NEGATIVE) 02/14/20 17:00 Urine RBC Trace /hpf (0-5) 02/14/20 17:00 Urine WBC 0-5 /hpf (0-5) 02/14/20 17:00 Ur Epithelial Cells Trace /hpf (0-5) 02/14/20 17:00 Urine Bacteria Trace (NONE) 02/14/20 17:00 Urine Culture Comments Culture to follow 02/14/20 17:00 SARS-CoV-2 (PCR) Not detected (NotDetected) 02/14/20 18:50 Blood Type O Negative 02/14/20 17:00 Antibody Screen Negative 02/14/20 17:00 Crossmatch See Detail 02/14/20 17:00 Assessment/Plan - Narrative Narrative: 79-year-old female with history of pancreatic cancer, recent stenting of [place] admitted due to deconditioning and weakness secondary to poor oral intake. Patient was also found to be anemic which I am sure is attributing to her fatigue. Patient did receive 1 unit packed red blood cells on day of admission. Patient is feeling better today though still endorses weakness. Patient would deftly benefit from home health with physical therapy in the home. Patient has been having dark stools since having her stent placed. According to patient this is improving. Patient to be discharged later today and will follow with me in clinic in the next 3 to 5 days for repeat hemogram. Patient admitted with chronic nausea since being diagnosed pancreatic cancer having stent placed. Patient currently on Phenergan and Zofran which works well for her as long she takes it prior to becoming nauseous which I recommend her doing on a scheduled dosing in order to help her have a better appetite and increase her caloric intake. Patient stated her understanding to this. Patient with insomnia, previously on low-dose Ambien which was stopped to [place]. We will restart this as patient is unable to sleep which I think is also attributing some of her fatigue as she is tired and restless. Discussed in detail risks of being on the medicine including fall risks which could result in significant injury, both patient and daughter stated their understanding to this and wish to proceed with having it. The daughter staying with her at this time and we will watch her at night when she sleeping. Blood pressure stabilized, no longer hypotensive. She normally runs in the low 100s over 60s at her baseline. Patient with history of leukocytosis while here, has been ongoing since she left [place] as well. Patient currently being treated with Cipro for UTI. She is asymptomatic otherwise and does not have any concerns aside from her fatigue. - Assessment/Plan (1) Pancreatic cancer Problem: Acute (2) Anemia Problem: Acute (3) Failure to thrive Problem: Acute Qualifiers: Failure to thrive age range: in adult Qualified Code(s): R62.7 - Adult failure to thrive (4) Leukocytosis Problem: Acute (5) Hypotension Problem: Acute (6) Insomnia Problem: Chronic Qualifiers: Insomnia type: primary Qualified Code(s): F51.01 - Primary insomnia (1) Pancreatic cancer Problem: Acute (2) Anemia Problem: Acute (3) Failure to thrive Problem: Acute (4) Leukocytosis Problem: Acute (5) Hypotension Problem: Acute (6) Insomnia Problem: Chronic Qualifiers: Insomnia type: primary Qualified Code(s): F51.01 - Primary insomnia Date of Discharge:: 02/15/20 Hospital Course: 79-year-old female with history of pancreatic cancer, recent stenting of [place] admitted due to deconditioning and weakness secondary to poor oral intake. Patient was also found to be anemic which I am sure is attributing to her fatigue. Patient did receive 1 unit packed red blood cells on day of admission. Patient is feeling better today though still endorses weakness. Patient would deftly benefit from home health with physical therapy in the home. Patient has been having dark stools since having her stent placed. According to patient this is improving. Patient to be discharged later today and will follow with me in clinic in the next 3 to 5 days for repeat hemogram. Patient admitted with chronic nausea since being diagnosed pancreatic cancer having stent placed. Patient currently on Phenergan and Zofran which works well for her as long she takes it prior to becoming nauseous which I recommend her doing on a scheduled dosing in order to help her have a better appetite and increase her caloric intake. Patient stated her understanding to this. Patient with insomnia, previously on low-dose Ambien which was stopped to [place]. We will restart this as patient is unable to sleep which I think is also attributing some of her fatigue as she is tired and restless. Discussed in detail risks of being on the medicine including fall risks which could result in significant injury, both patient and daughter stated their understanding to this and wish to proceed with having it. The daughter staying with her at this time and we will watch her at night when she sleeping. Blood pressure stabilized, no longer hypotensive. She normally runs in the low 100s over 60s at her baseline. Patient with history of leukocytosis while here, has been ongoing since she left [place] as well. Patient currently being treated with Cipro for UTI. She is asymptomatic otherwise and does not have any concerns aside from her fatigue. Dee is confined to home due to her muscular deconditioning and chronic weakness secondary to her pancreatic cancer and is in need for physical therapy to help with endurance issues, gait and balance issues, strengthening. The need for home health care skilled services directly related to the time spent [id number] with the patient. Procedures Performed: none Results and Findings: Pending Mircobiology Results 02/14/20 16:52 Urine,Catheterized Urine Culture - Preliminary No Growth Lab Pending Results 02/14/20 16:30: WBC 25.3 H, RBC 2.95 L, Hgb 7.9 L* D, Hct 24.8 L, MCV 84.1, MCH 26.8 L, MCHC 31.9 L, RDW 15.5 H, Plt Count 679 H, MPV 9.8, Neutrophils % (Manual) 85 H, Band Neuts % (Manual) 2, Lymphocytes % (Manual) 10 L, Monocytes % (Manual) 3, Neutrophils # (Manual) 21.5 H, Lymphocytes # (Manual) 2.5, Monocytes # (Manual) 0.8, Platelet Estimate Increased H, Giant Platelets Trace, Anisocytosis 1+ 02/14/20 16:30: Sodium 131 L, Plasma Sodium 132, Potassium 3.1 L D, Chloride 95 L, Carbon Dioxide 26.9, Anion Gap 12.2, BUN 42 H D, Creatinine 1.18, Est GFR (Non-Af Amer) 47 L D, BUN/Creatinine Ratio 35.6 H, Random Glucose 161 H, Calcium 6.1 L, Calcium Adj for Albumin 7.7 L, Total Bilirubin 0.6, AST 36, ALT 26, Alkaline Phosphatase 465 H, Troponin I Less than 0.017, Total Protein 5.3 L, Albumin 1.6 L, Lipase 69 L 02/14/20 17:00: Lactic Acid, Venous 2.0 02/14/20 17:00: Urine Color Yellow, Urine Appearance Clear, Urine pH 6.5, Ur Specific [place] 1.015, Urine Protein Negative, Urine Glucose (UA) Negative, Urine Ketones 5, Urine Blood Negative, Urine Nitrate Negative, Urine Bilirubin 1 H, Urine Ictotest Positive H, Urine Urobilinogen Normal, Ur Leukocyte Esterase Negative, Urine RBC Trace, Urine WBC 0-5, Ur Epithelial Cells Trace, Urine Bacteria Trace, Urine Culture Comments Culture to follow 02/14/20 17:00: Blood Type O Negative, Antibody Screen Negative, Crossmatch See Detail 02/14/20 18:50: SARS-CoV-2 (PCR) Not detected 02/15/20 01:00: WBC 19.5 H D, RBC 3.10 L, Hgb 8.4 L, Hct 26.5 L, MCV 85.5, MCH 27.1, MCHC 31.7 L, RDW 15.4 H, Plt Count 430, MPV 10.6 Discharge Location: Home - [facility] health agency [facility] Disposition: Home self-long-term Health [facility] Condition: Fair Discharge Activity: Activity as tolerated Discharge Diet: General/regular food, Other - Advised patient to take 2 ensures a day with diet Referrals: Eliecer Hou DO [Primary Care Provider] - One Week (Repeat hemogram in 3 to 5 days) Prescriptions (Any new or edited meds): Zolpidem Tartrate [Ambien] 5 mg PO HS PRN #30 tab PRN Reason: Sleep Transmission Status: Sent to [facility] Prochlorperazine Maleate [Compazine] 10 mg PO Q6H PRN #30 PRN Reason: nausea and vomiting Prescription Printed Ondansetron [Zofran Odt] 8 mg PO Q8H PRN #30 tab.rapdis PRN Reason: nausea and vomiting Prescription Printed Complete Home Medications List: Complete Home Medication List: furosemide 20 mg tablet 30 mg PO DAILY tab 07/20/18 Aspirin/Acetaminophen/Caffeine [Excedrin Migraine Caplet] 2 ea PO DAILY PRN 07/21/18 folic acid 1 mg tablet 1 mg PO DAILY #30 tab 08/28/18 mirtazapine 15 mg tablet 15 mg PO HS #30 tab 05/02/19 levothyroxine 150 mcg tablet 150 mcg PO DAILY@0700 #90 tab 09/11/19 potassium chloride 10 mEq tablet,extended release 10 meq PO BID #60 tab 01/03/20 simvastatin 40 mg tablet 40 mg PO HS #30 tab 01/21/20 ondansetron 8 mg disintegrating tablet 8 mg PO Q8H PRN 02/12/20 Ondansetron [Zofran Odt] 8 mg PO Q8H PRN #30 tab.rapdis 02/15/20 Prochlorperazine Maleate [Compazine] 10 mg PO Q6H PRN #30 02/15/20 Zolpidem Tartrate [Ambien] 5 mg PO HS PRN #30 tab 02/15/20
[2020-02-15 16:42] VITALS: BP 120/74
[2020-02-15] MEDS ORDERED: SIMVASTATIN 40 MG TABLET PO SCH (21:00)
[2020-02-15] MEDS ORDERED: MIRTAZAPINE 15 MG TABLET PO SCH (21:00)
[2020-02-16] MEDS ORDERED: LEVOTHYROXINE SODIUM 150 MCG TABLET PO SCH (07:00)
== END 2020-02-15 16:40 | disposition home health service (06) ==
LOC: MS 15:22 → ER 15:22 → MS 21:40
PROVIDERS: ADMIT Family Medicine; ATTEND Family Medicine